=== PATIENT | female | born 1950 | race Caucasian/White ===

== ENCOUNTER 2016-11-26 11:15 | Emergency (ER) | payer OTHER ==
[2016-11-26] MEDS ORDERED: Zofran 4 MG/2 ML VIAL IV ONE (13:09)
[2016-11-26] MEDS ORDERED: MORPHINE SULFATE 4 MG INJ IV ONE (13:09)
--- NOTE | 2016-11-26 13:09 | ERPHSYRPT ---
- History of Present Illness Time Seen by Provider: 11/26/16 13:05 Source: patient, family Exam Limitations: no limitations Patient Subjective Stated Complaint: right hip pain for two months. seeing dr. valle. took pain med at home with minimal relief. Triage Nursing Assessment: to room per w/c. skin w/d, color normal. tenderness right hip. leg warm, normal color. good pedal pulse. Physician History: The patient is a 66-year-old female with her daughter complaining of worsening right hip pain. 2 months ago she developed right hip pain. She saw her primary medical doctor and had a right hip x-ray done which showed arthritis. She took Tylenol and it resolved. Yesterday it began hurting again. There was no injury. It is very difficult for her even to walk. She took Tylenol 3 with some relief. Her past medical history is significant only for asthma. Method of Injury: unknown Occurred: other (2 months) Quality: sharpness Severity of Pain-Max: severe Severity of Pain-Current: severe Lower Extremities Pain: hip: right Modifying Factors: Improves With: pain medication Associated Symptoms: unable to bear weight Allergies/Adverse Reactions: No Known Drug Allergies Allergy (Verified 11/26/16 12:53) Home Medications: Fluticasone/Vilanterol [Breo Ellipta 100-25 Mcg INH] 1 each IH DAILY 11/26/16 [ History] Hydrochlorothiazide 12.5 mg PO DAILY 11/26/16 [History] Montelukast Sodium [Singulair] 10 mg PO DAILY 11/26/16 [History] Hx Tetanus, Diphtheria Vaccination/Date Given: No Hx Influenza Vaccination/Date Given: Yes (2015) Hx Pneumococcal Vaccination/Date Given: Yes - Review of Systems Constitutional: No Fever, No Chills Eyes: No Symptoms Ears, Nose, & Throat: No Symptoms Respiratory: No Cough, No Dyspnea Cardiac: No Chest Pain, No Edema, No Syncope Abdominal/Gastrointestinal: No Abdominal Pain, No Nausea, No Vomiting, No Diarrhea Genitourinary Symptoms: No Dysuria Musculoskeletal: Joint Pain Skin: No Rash Neurological: No Dizziness, No Focal Weakness, No Sensory Changes Psychological: No Symptoms Endocrine: No Symptoms Hematologic/Lymphatic: No Symptoms Immunological/Allergic: No Symptoms All Other Systems: Reviewed and Negative - Past Medical History Pertinent Past Medical History: Yes Cardiac History: Hypertension Respiratory History: Asthma - Past Surgical History Past Surgical History: Yes Neuro Surgical History: No Pertinent History Cardiac: No Pertinent History Respiratory: Lobectomy Gastrointestinal: No Pertinent History Genitourinary: No Pertinent History Musculoskeletal: No Pertinent History Female Surgical History: Tubal Ligation - Social History Smoking Status: Never smoker Exposure to second hand smoke: No Drug Use: none Patient Lives Alone: No - Nursing Vital Signs Nursing Vital Signs: Initial Vital Signs Temperature 97.9 F Temperature Source Oral Pulse Rate 73 Respiratory Rate 16 Blood Pressure [Right Arm] 168/74 Blood Pressure [Left Arm] 138/66 Pain Intensity 4 - Physical Exam General Appearance: moderate distress Eyes, Ears, Nose, Throat Exam: moist mucous membranes Neck Exam: non-tender, supple Cardiovascular/Respiratory Exam: chest non-tender, normal breath sounds, regular rate/rhythm, no respiratory distress Gastrointestinal/Abdominal Exam: non-tender, guarding Back Exam: normal inspection, No vertebral tenderness Hips Exam: right: limited range of motion, soft tissue tenderness, left: non- tender, normal inspection, normal range of motion Legs Exam: bilateral leg: non-tender, normal inspection Knees Exam: bilateral knee: non-tender, normal inspection Ankle Exam: bilateral ankle: non-tender, normal inspection Foot Exam: bilateral foot: non-tender, normal inspection Neuro/Tendon Exam: normal sensation, normal motor functions Mental Status Exam: alert, oriented x 3, cooperative Skin Exam: normal color, warm, dry SpO2 Interpretation: normal SpO2: 97 Oxygen Delivery: Room Air - CT Exams Right Lower Extremity CT Interpretation: Negative, Tele-radiologist Report (per Dr Hilario) Ordered Tests: Active Orders 24 hr Category Date Time Status IV Insertion STAT Care 11/26/16 13:09 Active HIP UNI (2V) INCL PEL IF DONE Stat Exams 11/26/16 13:10 Taken LOWER EXTREMITY WO CONTRAST [CT] Stat Exams 11/26/16 14:07 Taken Medication Summary Discontinued Medications Generic Name Dose Route Start Last Admin Trade Name Freq PRN Reason Stop Dose Admin Morphine Sulfate 4 mg 11/26/16 13:09 11/26/16 13:41 Morphine Sulfate 4 Mg Inj IV 11/26/16 13:10 4 mg STAT ONE Administration Morphine Sulfate Confirm 11/26/16 13:33 Morphine Sulfate 4 Mg Inj Administered 11/26/16 13:34 Dose 4 mg .ROUTE .STK-MED ONE Ondansetron HCl 4 mg 11/26/16 13:09 11/26/16 13:42 Zofran 4 Mg/2 Ml Vial IV 11/26/16 13:10 4 mg STAT ONE Administration Ondansetron HCl Confirm 11/26/16 13:33 Zofran 4 Mg/2 Ml Vial Administered 11/26/16 13:34 Dose 4 mg .ROUTE .STK-MED ONE - Progress Progress: improved Counseled pt/family regarding: rad results - Departure Time of Disposition: 15:20 Departure Disposition: Home Clinical Impression: Hip pain Condition: Stable Critical Care Time: No Additional Instructions: You have right hip pain. This likely is muscular in nature. The CT scan of the right hip was negative. Take Tylenol No. 3 one tablet every 4-6 hours as needed. Apply ice to the area for 10-15 minutes at a time to 3 times a day. If the condition persists, follow-up with your family doctor for possible MRI study of the area. Prescriptions: Codeine Phosphate/APAP #3 [Tylenol #3 Tablet] 1 tab PO Q4-6HPRN PRN #10 tablet PRN Reason: Pain
[2016-11-26] MEDS ORDERED: Zofran 4 MG/2 ML VIAL ONE (13:33)
[2016-11-26] MEDS ORDERED: MORPHINE SULFATE 4 MG INJ ONE (13:33)
[2016-11-26 15:53] VITALS: BP 142/69; PULSE 84; O2SAT 95
--- NOTE | 2016-11-26 21:14 | XRAY ---
Indication: Right hip pain. Multiple contiguous axial images obtained through the right hip. Sagittal and coronal reformatted images obtained. Comparison: None No acute fracture or dislocation. Superior acetabular small well-circumscribed sclerotic lesion favoring bone island. Visualized noncontrasted soft tissues are unremarkable. Impression: Negative CT right hip. Comment: Preliminary interpretation was made by [facility]. No critical discrepancy. CTDI 74.34
--- NOTE | 2016-11-26 21:18 | XRAY ---
Indication: Worsening right hip pain. Comparison: September 19, 2016. AP pelvis and 2 views of the right hip demonstrates stable tiny superior acetabular spurring. Incidental L5-S1 degenerative facet arthropathy. No acute findings.
== END 2016-11-26 15:53 | disposition home or self-care (01) ==
LOC: ED 11:15
DX: M25.551 Pain in right hip (principal); R26.2 Difficulty in walking, not elsewhere classified
CPT/HCPCS: 36000; 73502; 73700; 96374; 96375; 99284; J2270; J2405

== ENCOUNTER 2018-11-19 11:31 | Observation (INO) | payer OTHER ==
[2018-11-19] MEDS ORDERED: TYLENOL 325 MG PO PRN (12:59)
[2018-11-19] MEDS ORDERED: solu-MEDROL 125 MG IV SCH ×2 (13:00→14:00)
--- NOTE | 2018-11-19 13:06 | PCM.HP.ADD ---
Addendum to History & Physical - History & Physical Addendum Addendum to History & Physical: This certifies that the History & Physical in the electronic chart reflects the current health status of the patient. If there are changes in the H&P these changes/exceptions are listed as follows.
[2018-11-19 13:13] LABS: BASOPHIL % 0.3 % (0.0-0.4); Basophil (Absolute #) 0.04 (0-0.4); Eosinophil % 0.6 % (0.00-5.0); Eosinophil (Absolute #) 0.08 (0-0.5); Granulocyte Absolute (ANC) 8.31 (1.4-6.9); Granulocytes % 67.2 % (36.0-66.0); Hematocrit 38.5 % (35-47); Hemoglobin 12.8 gm/dl (12.0-16.0); Lymphocytes % 24.2 % (24.0-44.0); Mean Cell Volume 81.6 fl (78-100); Mean Corpuscular Hemoglobin 27.1 pg (26-32); Mean Corpuscular Hgb Concent. 33.2 g/dl (32-36); Mean Platelet Volume 10.9 fl (6-9.5); Monocyte (Absolute #) 0.96 (0.0-1.3); Monocytes % 7.7 % (0.0-12.0); Platelet Count 234 K/mm3 (150-450); Red Blood Count 4.72 M/mm3 (4.1-5.4); Red Cell Distribution Width 13.7 % (11.5-14.0); White Blood Count 12.4 K/mm3 (4.0-10.5)
[2018-11-19 13:17] LABS: ALBUMIN 4.1 g/dL (3.5-5.0); ALKALINE PHOSPHATASE 64 U/L (38-126); ANION GAP 13.7 MEQ/L (5-15); BLOOD UREA NITROGEN 10 mg/dL (7-17); CHLORIDE 104 mmol/L (98-107); Calcium 9.5 mg/dL (8.4-10.2); Carbon Dioxide 23 mmol/L (22-30); Glucose 96 mg/dL (74-106); Potassium 3.1 mmol/L (3.5-5.1); SGOT/AST 28 U/L (14-36); SGPT/ALT 28 U/L (0-35); SODIUM 138 mmol/L (137-145); Total Protein 7.4 g/dL (6.3-8.2)
[2018-11-19] MEDS ORDERED: PROVENTIL 2.5 MG/3 ML NEB IH PRN (13:32)
[2018-11-19] MEDS: Sodium Chloride 0.9% 1000 ML 1,000 ML IV SCH (13:36)
[2018-11-19] MEDS: ROCEPHIN 1 Gm-D5w 50 ml Bag** 1 G/50 ML IVPB IV SCH ×2 (13:37→14:49)
[2018-11-19] MEDS: ENOXAPARIN SODIUM SQ SCH (13:37)
--- NOTE | 2018-11-19 14:55 | XRAY ---
Exam: Two-view chest from 11/19/2018. Comparison: Two-view chest from 04/12/2016. Indication: 68-year-old female with cough and shortness of breath. Findings: Upright PA and lateral chest films were obtained. The heart size and contour appear unremarkable. The lung cazares are well inflated. A calcified granuloma is seen within the right suprahilar projection representing no change. A couple surgical clips are seen anterior right lateral to the distal trachea representing no change. Some nonspecific lung markings are seen overlying the upper aspect of the heart anteriorly on the lateral radiograph which I believe are unchanged from 04/12/2016, i.e. chronic. I see no new air space infiltrates, vascular congestion, pneumothorax, or pleural fluid. Mild biapical pleural thickening/scarring is seen. There is interposition of the hepatic flexure of the colon with the liver in the right upper quadrant. There appears to be a mild pectus excavatum at the level of the sternum. No acute osseous process is seen. Mild scattered anterior vertebral endplate spurring is seen throughout the visualized thoracolumbar spine. Impression: 1. I see no new air space infiltrates to suggest pneumonia. No other acute cardiopulmonary disease is seen. 2. Other stable findings are seen within the chest, as discussed above.
[2018-11-19] MEDS ORDERED: PROVENTIL 2.5 MG/3 ML NEB IH SCH (15:00)
[2018-11-19] MEDS: DUONEB 0.5-3 MG/3 ml Neb IH SCH ×2 (15:20→19:24)
[2018-11-19] MEDS ORDERED: FLUTICASONE IH SCH (17:00)
[2018-11-19] MEDS ORDERED: VILANTEROL IH SCH (17:00)
[2018-11-19] MEDS ORDERED: Advair Hfa 115/21 Common canister IH SCH (19:00)
[2018-11-19] MEDS: PATIENT OWN MEDICATION PO SCH (19:28)
[2018-11-19] MEDS: solu-MEDROL 125 MG IV SCH (21:10)
[2018-11-19] MEDS: Cymbalta 30 MG Capsule PO SCH ×2 (21:11→21:36)
[2018-11-19] MEDS: TYLENOL 325 MG PO PRN (21:26)
[2018-11-19] MEDS ORDERED: DULOXETINE HCL 30 MG PO SCH (22:00)
[2018-11-19] MEDS ORDERED: Singulair 10 MG PO SCH (22:00)
[2018-11-20] MEDS: DUONEB 0.5-3 MG/3 ml Neb IH SCH ×4 (01:55→19:34)
[2018-11-20] MEDS: Sodium Chloride 0.9% 1000 ML 1,000 ML IV SCH (05:12)
[2018-11-20] MEDS: solu-MEDROL 125 MG IV SCH ×3 (05:12→21:39)
[2018-11-20] MEDS: PATIENT OWN MEDICATION PO SCH (07:29)
[2018-11-20] MEDS: hydroDIURIL 25 MG PO SCH (09:44)
[2018-11-20] MEDS: ROCEPHIN 1 Gm-D5w 50 ml Bag** 1 G/50 ML IVPB IV SCH (09:45)
[2018-11-20] MEDS: ENOXAPARIN SODIUM SQ SCH (09:45)
[2018-11-20] MEDS ORDERED: NON-FORMULARY ITEM (Hydrochlorothiazide [Hydrochlorothiazide] 12.5 MG) PO SCH (10:00)
[2018-11-20] MEDS ORDERED: Cymbalta 30 MG Capsule PO SCH (10:01)
[2018-11-20] MEDS ORDERED: Singulair 10 MG PO SCH (10:01)
[2018-11-20] MEDS: POTASSIUM CHLORIDE 20 mEq IN WATER 100ML 20 MEQ/100 ML BAG IV SCH ×2 (13:04→15:12)
--- NOTE | 2018-11-20 13:21 | PCM.NOTE ---
Date and Time: 11/20/18 1318 Subjective Assessment: doing better today, still short of breath - Review of Systems Constitutional: No Fever, No Chills Eyes: No Symptoms Ears, Nose, & Throat: No Symptoms Respiratory: Cough, Orthopnea, Short Of Breath Cardiac: No Chest Pain, No Edema, No Syncope Abdominal/Gastrointestinal: No Abdominal Pain, No Nausea, No Vomiting, No Diarrhea Genitourinary Symptoms: No Dysuria Musculoskeletal: No Back Pain, No Neck Pain Skin: No Rash Neurological: No Dizziness, No Focal Weakness, No Sensory Changes Psychological: No Symptoms Endocrine: No Symptoms Hematologic/Lymphatic: No Symptoms Immunological/Allergic: No Symptoms Objective Exam General Appearance: no apparent distress, alert Neurologic Exam: alert, oriented x 3, cooperative, normal mood/affect, nml cerebellar function, sensation nml, No motor deficits Skin Exam: normal color, warm, dry Eye Exam: PERRL, EOMI, eyes nml inspection Ears, Nose, Throat Exam: normal ENT inspection, pharynx normal, moist mucous membranes Neck Exam: normal inspection, non-tender, supple, full range of motion Respiratory Exam: diminished breath sounds, No respiratory distress Cardiovascular Exam: regular rate/rhythm, normal heart sounds Gastrointestinal/Abdomen Exam: soft, No tenderness, No mass Extremity Exam: normal inspection, normal range of motion Back Exam: normal inspection, normal range of motion, No CVA tenderness, No vertebral tenderness Pelvic Exam: deferred Rectal Exam: deferred OBJECTIVE DATA Vital Signs: Vital Signs - 24 hr Temp Pulse Resp BP Pulse Ox 11/20/18 11:20 97.5 F 92 H 20 145/63 95 11/20/18 08:00 18 11/20/18 07:15 88 18 94 L 11/20/18 07:08 97.7 F 81 18 148/64 95 11/20/18 04:00 98.4 F 86 18 151/70 98 11/20/18 01:55 94 H 20 90 L 11/19/18 23:33 97.4 F 85 20 131/60 85 L 11/19/18 20:00 98.2 F 98 H 18 152/68 94 L 11/19/18 19:30 97 H 18 100 11/19/18 18:00 18 11/19/18 16:01 98.7 F 80 18 156/72 96 11/19/18 13:43 18 Pain Assessment - Last Documented Pain Intensity 0 Pain Scale Used 0-10 Pain Scale Intake and Output: Intake & Output 11/18/18 11/19/18 11/20/18 11/21/18 11:59 11:59 11:59 11:59 Intake Total 2327 240 Output Total 750 Balance 1577 240 Weight 71.6 kg Lab Results: Lab Results-Last 24 Hours 11/19/18 Range/Units 12:59 Sodium 138 (137-145) mmol/L Potassium 3.1 L (3.5-5.1) mmol/L Chloride 104 (98-107) mmol/L Carbon Dioxide 23 (22-30) mmol/L Anion Gap 13.7 (5-15) MEQ/L BUN 10 (7-17) mg/dL Creatinine 0.80 (0.52-1.04) mg/dL Estimated GFR > 60.0 ML/MIN Glucose 96 (74-106) mg/dL Calcium 9.5 (8.4-10.2) mg/dL Total Bilirubin 0.70 (0.2-1.3) mg/dL AST 28 (14-36) U/L ALT 28 (0-35) U/L Alkaline Phosphatase 64 (38-126) U/L Serum Total Protein 7.4 (6.3-8.2) g/dL Albumin 4.1 (3.5-5.0) g/dL Radiology Exams: Radiology Procedures Category Date Time Status CHEST 2 VIEWS (PA AND LAT) Stat Exams 11/19/18 13:51 Completed Assessment/Plan (1) Acute exacerbation of chronic bronchitis Current Visit: Yes Status: Acute Assessment & Plan: continue IV steroids and abx, bronchodilaters Code(s): J20.9 - ACUTE BRONCHITIS, UNSPECIFIED; J42 - UNSPECIFIED CHRONIC BRONCHITIS (2) Abnormal electrocardiogram [ECG] [EKG] Current Visit: Yes Status: Acute Assessment & Plan: no change from previous one, will continue monitoring (3) Hypokalemia due to loss of potassium Current Visit: Yes Status: Acute Assessment & Plan: K replacements, recheck K after infusion. Code(s): E87.6 - HYPOKALEMIA
[2018-11-20 19:52] LABS: Potassium 3.8 mmol/L (3.5-5.1)
[2018-11-20 20:04] LABS: TROPONIN 0.136 ng/mL (0.000-0.034)
[2018-11-20] MEDS: TYLENOL 325 MG PO PRN (21:39)
[2018-11-21] MEDS: Sodium Chloride 0.9% 1000 ML 1,000 ML IV SCH (03:52)
[2018-11-21] MEDS: solu-MEDROL 125 MG IV SCH (06:41)
[2018-11-21] MEDS ORDERED: DUONEB 0.5-3 MG/3 ml Neb IH PRN (07:00)
[2018-11-21] MEDS: PATIENT OWN MEDICATION PO SCH (07:31)
[2018-11-21] MEDS: ROCEPHIN 1 Gm-D5w 50 ml Bag** 1 G/50 ML IVPB IV SCH (10:19)
[2018-11-21] MEDS: hydroDIURIL 25 MG PO SCH (10:21)
[2018-11-21] MEDS: ENOXAPARIN SODIUM SQ SCH (10:22)
[2018-11-21 12:05] VITALS: BP 150/65; PULSE 81; O2SAT 95
--- NOTE | 2018-11-21 12:53 | PCM.SSS ---
History of Present Illness - Chief Complaint Chief Complaint: cough for last 4 weeks History of Present Illness: is a 68 year old female came to hospital with c/o cough for 4 weeks. Patient denies any chest pain. c/o cough with mild productive sputum. minimal shortness of breath - Review of Systems Constitutional: No Fever, No Chills Eyes: No Symptoms Ears, Nose, & Throat: No Symptoms Respiratory: Cough, Short Of Breath Cardiac: No Chest Pain, No Edema, No Syncope Abdominal/Gastrointestinal: No Abdominal Pain, No Nausea, No Vomiting, No Diarrhea Genitourinary Symptoms: No Dysuria Musculoskeletal: No Back Pain, No Neck Pain Skin: No Rash Neurological: No Dizziness, No Focal Weakness, No Sensory Changes Psychological: No Symptoms Endocrine: No Symptoms Hematologic/Lymphatic: No Symptoms Immunological/Allergic: No Symptoms Medications & Allergies Home Medications: Home Medication List Fluticasone/Vilanterol [Breo Ellipta 100-25 Mcg INH] 100 mcg IH QID 11/26/16 [ History Confirmed 11/19/18] Hydrochlorothiazide 12.5 mg PO DAILY 11/26/16 [History Confirmed 11/19/18] Montelukast Sodium [Singulair] 10 mg PO DAILY 11/26/16 [History Confirmed ] Albuterol 2.5 mg/3 ml Neb [Proventil 2.5 mg/3 ml Neb] 2.5 mg IH Q4-6HPRN PRN 11/19/18 [History Confirmed 11/19/18] Duloxetine HCl 30 mg PO DAILY 11/19/18 [History Confirmed 11/20/18] Acetaminophen 325 mg [Tylenol 325 mg] 650 mg PO Q4H PRN PRN tablet [Rx] Aspirin 81 gm Chew [Baby Aspirin 81 mg Chew] 81 mg PO DAILY #30 tab.chew 11/21/18 [Rx] Carvedilol 3.125 mg [Coreg 3.125 MG] 3.125 mg PO BID #60 tablet 11/21/18 [ Rx] Lisinopril [Zestril] 2.5 mg PO DAILY #30 tablet 11/21/18 [Rx] Allergies/Adverse Reactions: Allergies Allergy/AdvReac Type Severity Reaction Status Date / Time No Known Drug Allergies Allergy Verified 11/26/16 12:53 - Past Medical History Past Medical History: Yes Neurological History: No Pertinent History ENT History: No Pertinent History Cardiac History: Hypertension Respiratory History: Asthma, Pneumonia Endocrine Medical History: No Pertinent History Musculoskelatal History: Arthritis, Fibromyalgia GI Medical History: No Pertinent History History: No Pertinent History Pyscho-Social History: No Pertinent History Reproductive Disorders: No Pertinent History - Female History Hx Last Menstrual Period: . Are you now?: No - Past Surgical History Past Surgical History: Yes Neuro Surgical History: No Pertinent History Cardiac History: No Pertinent History Respiratory Surgery: Lobectomy GI Surgical History: No Pertinent History Genitourinary Surgical Hx: No Pertinent History Musculskeletal Surgical Hx: No Pertinent History Female Surgical History: Tubal Ligation - Social History Smoking Status: Never smoker Exposure to second hand smoke: Yes Alcohol: None Drug Use: none - Physical Exam Vital Signs: Vital Signs - 24 hr Temp Pulse Resp BP Pulse Ox 11/21/18 12:04 98.2 F 81 16 150/65 95 11/21/18 12:00 16 11/21/18 07:47 97.8 F 73 18 169/71 96 11/21/18 07:34 98 H 18 99 11/21/18 04:00 97.8 F 67 17 184/77 95 11/21/18 00:00 97.7 F 68 17 131/61 94 L 11/20/18 20:00 97.9 F 95 H 16 148/68 95 11/20/18 19:37 95 11/20/18 19:36 95 H 16 95 11/20/18 16:01 97.6 F 91 H 20 166/72 95 11/20/18 13:36 96 H 18 95 General Appearance: no apparent distress, alert Neurologic Exam: alert, oriented x 3, cooperative, normal mood/affect, nml cerebellar function, nml station & gait, sensation nml, No motor deficits Eye Exam: PERRL/EOMI, eyes nml inspection Ears, Nose, Throat Exam: normal ENT inspection, TMs normal, pharynx normal, moist mucous membranes Neck Exam: normal inspection, non-tender, supple, full range of motion Respiratory Exam: lungs clear, diminished breath sounds, rhonchi, wheezing, No respiratory distress Cardiovascular Exam: regular rate/rhythm, normal heart sounds, normal peripheral pulses Gastrointestinal/Abdomen Exam: soft, normal bowel sounds, No tenderness, No mass Back Exam: normal inspection, normal range of motion, No CVA tenderness, No vertebral tenderness Extremity Exam: normal inspection, normal range of motion, pelvis stable Skin Exam: normal color, warm, dry, No rash Lymphatic Exam: No adenopathy Results - Labs Lab/Micro Results: Lab Results-Last 24 Hours 11/20/18 11/21/18 Range/Units 19:15 07:49 Potassium 3.8 D (3.5-5.1) mmol/L Troponin I 0.136 H* 0.115 H* (0.000-0.034) ng/mL - Radiology Impressions Radiology Exams & Impressions: Radiology Procedures Category Date Time Status CHEST 2 VIEWS (PA AND LAT) Stat Exams 11/19/18 13:51 Completed ECHO W/2D AND DOPPLER [US] Routine Exams 11/21/18 10:25 Taken - Other Procedures and Tests Respiratory Therapy 11/21/18 07:00 Respiratory MDI UD Assessment/Plan (1) Acute exacerbation of chronic bronchitis Current Visit: Yes Status: Acute Assessment & Plan: Last Vital Signs Temp 98.2 F 11/21/18 12:04 Pulse 81 11/21/18 12:04 Resp 16 11/21/18 12:04 BP 150/65 11/21/18 12:04 Pulse Ox 95 11/21/18 12:04 Allergies No Known Drug Allergies Allergy (Verified 11/26/16 12:53) Active Medications Acetaminophen (Tylenol 325 Mg) 650 mg PO Q4H PRN PRN PRN Reason: PAIN, FEVER, HEADACHE Stop: 12/19/18 12:58 Last Admin: 11/20/18 21:39 Dose: 650 mg Albuterol Sulfate (Proventil 2.5 Mg/3 Ml Neb) 2.5 mg IH Q2H PRN PRN PRN Reason: SHORTNESS OF BREATH/WHEEZING Stop: 12/19/18 13:31 Albuterol/Ipratropium (Duoneb 0.5-3 Mg/3 Ml Neb) 3 ml IH Q4HPRN PRN PRN Reason: SHORTNESS OF BREATH/WHEEZING Stop: 12/21/18 06:59 Duloxetine HCl (Cymbalta 30 Mg Capsule) [facility] Stop: 12/20/18 09:59 Last Admin: 11/21/18 10:23 Dose: 30 mg Enoxaparin Sodium (Enoxaparin Sodium) 40 mg SQ DAILY [facility] Stop: 12/20/18 09:59 Last Admin: 11/21/18 10:22 Dose: 40 mg Hydrochlorothiazide (Hydrodiuril 25 Mg) 12.5 mg PO DAILY MATTI Stop: 12/20/18 09:59 Last Admin: 11/21/18 10:21 Dose: 12.5 mg Ceftriaxone Sodium/Dextrose (Rocephin 1 Gm-D5w 50 Ml Bag) 1 g in 50 mls @ 100 mls/hr IV Q24H10 [facility] Stop: 12/19/18 13:59 Last Admin: 11/21/18 10:19 Dose: 100 mls/hr Sodium Chloride (Sodium Chloride 0.9% 1000 Ml) 1,000 mls @ 50 mls/hr IV .Q20H [facility] Stop: 12/19/18 12:59 Last Admin: 11/21/18 03:52 Dose: 50 mls/hr Methylprednisolone Sodium Succinate (Solu-Medrol 125 Mg) 60 mg IV Q8HT [facility] Stop: 12/19/18 21:59 Last Admin: 11/21/18 06:41 Dose: 60 mg Montelukast Sodium (Singulair 10 Mg) 10 mg PO DAILY [facility] Stop: 12/20/18 09:59 Last Admin: 11/21/18 10:22 Dose: 10 mg Patient Own Medication (Patient Own Medication) 1 each PO DAILY [facility] Stop: 12/20/18 09:59 Last Admin: 11/20/18 07:29 Dose: 1 each Intake & Output 11/21/18 11/22/18 11:59 11:59 Intake Total 1660 600 Output Total 2100 900 Balance -440 -300 Orders 11/21/18 07:00 Albuterol/Ipratropium 3ml Neb* [DUONEB 0.5-3 MG/3 ml Neb] 3 ml IH Q4HPRN PRN Respiratory MDI UD 11/21/18 08:47 Consult Cardiology ROUTINE 11/21/18 10:25 ECHO W/2D AND DOPPLER [US] Routine Lab Tests 11/20/18 11/21/18 19:15 07:49 Potassium 3.8 D Troponin I 0.136 H* 0.115 H* Code(s): J20.9 - ACUTE BRONCHITIS, UNSPECIFIED; J42 - UNSPECIFIED CHRONIC BRONCHITIS (2) Abnormal electrocardiogram [ECG] [EKG] Current Visit: Yes Status: Acute (3) Hypokalemia due to loss of potassium Current Visit: Yes Status: Resolved Code(s): E87.6 - HYPOKALEMIA (4) Elevated troponin Current Visit: Yes Status: Acute Assessment & Plan: downward trend Code(s): R74.8 - ABNORMAL LEVELS OF OTHER SERUM ENZYMES Hospital Summary - Hospital Course Hospital Course: Chief Complaint Diagnosis Chronic Bronchitis Allergies Allergy/AdvReac Type Severity Reaction Status Date / Time No Known Drug Allergies Allergy Verified 11/26/16 12:53 Vital Signs (Last 24 hours) Temp Pulse Resp BP Pulse Ox 11/21/18 12:04 98.2 F 81 16 150/65 95 11/21/18 12:00 16 11/21/18 07:47 97.8 F 73 18 169/71 96 11/21/18 07:34 98 H 18 99 11/21/18 04:00 97.8 F 67 17 184/77 95 11/21/18 00:00 97.7 F 68 17 131/61 94 L 11/20/18 20:00 97.9 F 95 H 16 148/68 95 11/20/18 19:37 95 11/20/18 19:36 95 H 16 95 11/20/18 16:01 97.6 F 91 H 20 166/72 95 11/20/18 13:36 96 H 18 95 Home Medications Medication Instructions Recorded Confirmed Last Taken Type Albuterol 2.5 mg/3 ml Neb 2.5 mg IH Q4-6HPRN PRN 11/19/18 11/19/18 Unknown History [Proventil 2.5 mg/3 ml Neb] Albuterol Sulfate [Proair Hfa] 90 mcg IH QID 11/19/18 11/19/18 1 Day Ago History ~11/18/18 Duloxetine HCl 30 mg PO DAILY 11/19/18 11/20/18 11/18/18 20:00 History Current Medications Generic Name Dose Route Start Last Admin Trade Name Freq PRN Reason Stop Dose Admin Acetaminophen 650 mg 11/19/18 13:31 11/20/18 21:39 Tylenol 325 Mg PO 12/19/18 12:58 650 mg Q4H PRN PRN Administration PAIN, FEVER, HEADACHE Albuterol Sulfate 2.5 mg 11/19/18 13:32 Proventil 2.5 Mg/3 Ml Neb IH 12/19/18 13:31 Q2H PRN PRN SHORTNESS OF BREATH/WHEEZING Albuterol/Ipratropium 3 ml 11/21/18 07:00 Duoneb 0.5-3 Mg/3 Ml Neb IH 12/21/18 06:59 Q4HPRN PRN SHORTNESS OF BREATH/WHEEZING Duloxetine HCl 30 mg 11/20/18 10:01 11/21/18 10:23 Cymbalta 30 Mg Capsule PO 12/20/18 09:59 30 mg QAM MATTI Administration Enoxaparin Sodium 40 mg 11/20/18 10:00 11/21/18 10:22 Enoxaparin Sodium SQ 12/20/18 09:59 40 mg DAILY MATTI Administration Hydrochlorothiazide 12.5 mg 11/20/18 10:00 11/21/18 10:21 Hydrodiuril 25 Mg PO 12/20/18 09:59 12.5 mg DAILY MATTI Administration Ceftriaxone Sodium/Dextrose 1 g in 50 mls @ 100 mls/hr 11/19/18 14:00 10:19 Rocephin 1 Gm-D5w 50 Ml Bag IV 12/19/18 13:59 100 mls/hr Q24H10 MATTI Administration Sodium Chloride 1,000 mls @ 50 mls/hr 11/19/18 13:00 11/21/18 03:52 Sodium Chloride 0.9% 1000 Ml IV 12/19/18 12:59 50 mls/hr .Q20H MATTI Administration Methylprednisolone Sodium Succinate 60 mg 11/19/18 22:00 11/21/18 06:41 Solu-Medrol 125 Mg IV 12/19/18 21:59 60 mg Q8HT MATTI Administration Montelukast Sodium 10 mg 11/20/18 10:01 11/21/18 10:22 Singulair 10 Mg PO 12/20/18 09:59 10 mg DAILY MATTI Administration Patient Own Medication 1 each 11/20/18 10:00 11/20/18 07:29 Patient Own Medication PO 12/20/18 09:59 1 each DAILY MATTI Administration Discontinued Medications Generic Name Dose Route Start Last Admin Trade Name Bettina PRN Reason Stop Dose Admin Acetaminophen 325 mg 11/19/18 12:59 11/19/18 13:39 Tylenol 325 Mg PO 12/19/18 12:58 650 mg Q4H PRN PRN Administration PAIN, FEVER, HEADACHE Albuterol Sulfate 2.5 mg 11/19/18 15:00 11/19/18 12:50 Proventil 2.5 Mg/3 Ml Neb IH 12/19/18 14:59 2.5 mg Q4HRT MATTI Administration Albuterol/Ipratropium 3 ml 11/19/18 13:00 11/20/18 19:34 Duoneb 0.5-3 Mg/3 Ml Neb IH 12/19/18 12:59 3 ml Q6HRT MATTI Administration Duloxetine HCl 30 mg 11/19/18 22:00 11/19/18 21:36 Cymbalta 30 Mg Capsule PO 12/19/18 21:59 Not Given HS MATTI Potassium Chloride 20 meq in 100 mls @ 50 mls/hr 11/20/18 12:15 11/20/18 15: 12 Potassium Chloride 20 Meq In Water 100ml IV 11/20/18 16:14 50 mls/hr Q2H MATTI Administration Methylprednisolone Sodium Succinate 60 mg 11/19/18 13:00 11/19/18 13:37 Solu-Medrol 125 Mg IV 12/19/18 12:59 60 mg Q8H MATTI Administration Methylprednisolone Sodium Succinate 60 mg 11/19/18 14:00 Solu-Medrol 125 Mg IV 12/19/18 12:59 Q8HT MATTI Montelukast Sodium 10 mg 11/19/18 22:00 11/19/18 21:35 Singulair 10 Mg PO 12/19/18 21:59 Not Given HS MATTI Fluticasone/Salmeterol 2 puff 11/19/18 19:00 11/20/18 10:05 Advair Hfa 115/21 Common Canister* IH 12/19/18 18:59 Not Given BIDRT MATTI Intake & Output (Last 24 hours) 11/19/18 11/20/18 11/21/18 11/22/18 11:59 11:59 11:59 11:59 Intake Total 2327 1660 600 Output Total 750 2100 900 Balance 1577 -440 -300 Weight 71.6 kg Laboratory Results (Last 24 hours) 11/21/18 11/20/18 07:49 19:15 Potassium 3.8 D Troponin I 0.115 H* 0.136 H* Orders (Last 24 hours) Category Date Time Status Consult Cardiology ROUTINE Cons 11/21/18 08:47 Active ECHO W/2D AND DOPPLER [US] Routine Exams 11/21/18 10:25 Taken Potassium Urgent Lab 11/20/18 19:15 Completed TROPONIN Urgent Lab 11/20/18 19:15 Completed TROPONIN Urgent Lab 11/21/18 07:49 Completed Albuterol/Ipratropium 3ml Neb* [DUONEB 0.5-3 MG/3 ml Med 11/21/18 07:00 Active Neb] 3 ml IH Q4HPRN PRN Potassium Chloride 20Meq/100Ml [POTASSIUM CHLORIDE 20 Med 11/20/18 12:15 Discontinued mEq IN WATER 100ML] 20 meq in 100 ml IV Q2H EKG STAT RT 11/20/18 20:25 Completed Respiratory MDI UD RT 11/21/18 07:00 Active Patient Care Notes (Last 24 hours) 11/21/18 10:46 Nursing Note by Kym Tripathi Received order for Cardiology consult. Cardiology consult completed per echo aguila. Dr Spain stated he would like the patient to be seen as an outpatient if Dr Norman was unable to see the patient here at this time. PT with elevated Trop I. Pt. with no active chest pain or discomfort at this time. Echo aguila placed a page to Dr Norman to update on new orders. Initialized on 11/21/18 10:46 - END OF NOTE 11/21/18 08:37 Nursing Note by Rosy Laboy I called and faxed everything to office. Office stated they will call patient with a sooner appt then 03/22/19 at 2pm. She had a pulmonary function test scheduled for that date 03/22/19 @ 3pm Initialized on 11/21/18 08:37 - END OF NOTE 11/20/18 20:30 Nursing Note by Behzad Sanders Notified Dr Spain of Troponin level 0.136. Pt is asymptomatic. BP 148/68, HR 95, R19, O2 sat 94% on RA, Temp 97.9. He ordered AM troponin, EKG now, and decrease nebulizer treatments to PRN only. Notified RT of these orders. Initialized on 11/20/18 20:30 - END OF NOTE 11/20/18 15:15 (created 11/20/18 16:11) Nursing Note by Kym Tripathi 2nd Potassium rider infusing at this time. PT tolerating well. Telemetry in place at this time Initialized on 11/20/18 16:11 - END OF NOTE 11/20/18 13:17 Nursing Note by Kym Tripathi IV potassium started and new tubing added to line a to infuse. Pt tolerating well Addendum entered by Kym Tripathi, RN 11/20/18 13:17: telemetry added to pt per protocol. Initialized on 11/20/18 13:17 - END OF NOTE - Vitals & Intake/Output Vital Signs: Vital Signs Temperature 98.2 F 11/21/18 12:04 Pulse Rate 81 11/21/18 12:04 Respiratory Rate 16 11/21/18 12:04 Blood Pressure 150/65 11/21/18 12:04 O2 Sat by Pulse Oximetry 95 11/21/18 12:04 Intake & Output: Intake & Output 11/19/18 11/20/18 11/21/18 11/22/18 11:59 11:59 11:59 11:59 Intake Total 2327 1660 600 Output Total 750 2100 900 Balance 1577 -440 -300 Weight 71.6 kg - Lab Result Diagrams: 11/19/18 12:59 11/20/18 19:15 Lab Results-Last 24 Hrs: Lab Results-Last 24 Hours 11/20/18 11/21/18 Range/Units 19:15 07:49 Potassium 3.8 D (3.5-5.1) mmol/L Troponin I 0.136 H* 0.115 H* (0.000-0.034) ng/mL - Radiology Exams Ordered Rad Exams-Entire Visit: Radiology Procedures Category Date Time Status CHEST 2 VIEWS (PA AND LAT) Stat Exams 11/19/18 13:51 Completed ECHO W/2D AND DOPPLER [US] Routine Exams 11/21/18 10:25 Taken - Procedures and Test Procedures and Tests throughout Hospitalization: Therapy Orders & Screens 11/19/18 12:42 Respiratory Therapy Assessment DAILY Comment: 11/19/18 12:43 Peak Expiratory Flow Rate ONCE Comment: Reason For Exam: 11/19/18 12:59 EKG STAT Comment: Oxygen Nasal Cannula 2 lpm Comment: Respiratory Therapy Consult ROUTINE Comment: Reason For Exam: 11/20/18 20:25 EKG STAT Comment: Diagnosis: Chronic Bronchitis 11/21/18 07:00 Respiratory MDI UD Comment: [facility]PT'S OWN Diagnosis: Chronic Bronchitis - Discharge Discharge Date: 11/21/18 Disposition: Home, Self-Care Condition: Stable Prescriptions: New Aspirin 81 gm Chew [Baby Aspirin 81 mg Chew] 81 mg PO DAILY #30 tab.chew Carvedilol 3.125 mg [Coreg 3.125 MG] 3.125 mg PO BID #60 tablet Acetaminophen 325 mg [Tylenol 325 mg] 650 mg PO Q4H PRN PRN tablet PRN Reason: Pain, Fever, Headache Lisinopril [Zestril] 2.5 mg PO DAILY #30 tablet Continue Montelukast Sodium [Singulair] 10 mg PO DAILY Hydrochlorothiazide 12.5 mg PO DAILY Fluticasone/Vilanterol [Breo Ellipta 100-25 Mcg INH] 100 mcg IH QID Albuterol 2.5 mg/3 ml Neb [Proventil 2.5 mg/3 ml Neb] 2.5 mg IH Q4- 6HPRN PRN PRN Reason: COPD Duloxetine HCl 30 mg PO DAILY Discontinued Albuterol Sulfate [Proair Hfa] 90 mcg IH QID Follow up with: DAGO GILLIAM MD [NON-STAFF PHY W/O PRIVILEGES] - 03/22/19 3:00 pm (pulm function test is scheduled at 2pm 03/22/19 but they are going to notify patient at home of a sooner date) HECTOR SPAIN MD [Primary Care Provider] - 1 Week
== END 2018-11-21 13:30 | disposition home or self-care (01) ==
LOC: MED SURG 11:51
PROVIDERS: ADMIT General Practice; ATTEND General Practice
DX: J20.9 Acute bronchitis, unspecified (principal); J44.0 Chronic obstructive pulmonary disease with (acute) lower respiratory infection; R94.31 Abnormal electrocardiogram [ECG] [EKG]; I10 Essential (primary) hypertension; R79.89 Other specified abnormal findings of blood chemistry; Z79.899 Other long term (current) drug therapy
CPT/HCPCS: 36415; 71046; 80053; 84132; 84484; 85025; 93005; 93268; 93306; 94150; 94640; 94760; G0378; J0696; J1650; J2930; J3480; J7609; A9270-GY

== ENCOUNTER 2019-01-28 11:13 | Day surgery (SDC) | payer OTHER ==
--- NOTE | 2019-01-28 08:04 | HP ---
DATE OF SURGERY: 01/28/2019 HISTORY OF PRESENT ILLNESS: The patient is a 68 year-old CT scan showed cholelithiasis, had some right upper quadrant pain. She denies any nausea or vomiting now. PAST MEDICAL HISTORY: She has history of osteoporosis, hypertension and some lung disease. PAST SURGICAL HISTORY: Tubal in the past. Lung nodule resection in the past. MEDICATIONS: Aspirin, acetaminophen, hydrochlorothiazide, Breo Ellipta, montelukast, Cymbalta, carvedilol, Spiriva, Evista. ALLERGIES: NKDA. FAMILY HISTORY: Negative in regards to this problem. SOCIAL HISTORY: No smoking or alcohol abuse. REVIEW OF SYSTEMS: Fourteen systems reviewed per admission assessment. No chest pain or palpitations other systems negative or noncontributory as above and per preadmission questionnaire. PHYSICAL EXAMINATION: GENERAL: No acute distress. HEENT: Sclerae nonicteric. NECK: No JVD. CHEST: Equal excursion, nonlabored breathing. CVS: Regular rate and rhythm. ABDOMEN: Soft. History of some mild tenderness right upper quadrant. No peritoneal signs. EXTREMITIES: No significant edema. NEURO: Alert, oriented, moving extremities symmetrically. No gross motor deficits noted. IMPRESSION: Symptomatic cholelithiasis, probable chronic cholecystitis. I feel the patient will benefit from cholecystectomy. 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 She may need further work up and/or testing, endoscopy, other studies or procedures. She understands and agrees to the planned procedure, will proceed with laparoscopic cholecystectomy with possible open. She had been shown the gallbladder pamphlet, explained all of the above risks but not limited to. Will proceed with laparoscopic cholecystectomy possible open as an outpatient.
[~2019-01-28 11:13] MED LIST: Lactated Ringers 1,000 ML IV ONE; Lactated Ringers 1,000 ML IV SCH; MEFOXIN 2 GM PREMIX** 2 GM/50 ML ML IV SCH; Sensorcaine 0.25% 10 ML ONE
[2019-01-28] MEDS ORDERED: DIPRIVAN 200 MG/20 ML IV ONE (11:46)
[2019-01-28] MEDS ORDERED: Zemuron 100 MG/10 ML ONE (11:46)
[2019-01-28] MEDS ORDERED: Versed 2 MG/2 ML Injection ONE (11:47)
[2019-01-28] MEDS ORDERED: SUBLIMAZE 250 MCG/5 ML ONE (11:47)
[2019-01-28] MEDS ORDERED: BREVIBLOC 100 MG/10 ML IV ONE (12:27)
[2019-01-28] MEDS ORDERED: SUBLIMAZE 100 MCG/2 ML ONE ×2 (12:34→13:50)
[2019-01-28] MEDS ORDERED: MORPHINE SULFATE 10 MG/ML ONE (12:35)
[2019-01-28] MEDS ORDERED: Thrombin-JMI 5000 UNITS TP ONE (12:51)
[2019-01-28] MEDS ORDERED: DILAUDID 2 MG INJECTION ONE (13:50)
--- NOTE | 2019-01-28 14:14 | OP ---
SURGERY DATE/TIME: 01/28/2019 1207 PREOPERATIVE DIAGNOSIS: Symptomatic cholelithiasis, chronic cholecystitis. POSTOPERATIVE DIAGNOSIS: Symptomatic cholelithiasis, chronic cholecystitis. PROCEDURE: Laparoscopic cholecystectomy. SURGEON: Dr. Tyrel Chaudhry. COLORED LEATHER SETTER: Dawson Fitzgerald M.D. - Medical Student III. ANESTHESIA: General. ESTIMATED BLOOD LOSS: Less than 50 to 75 cc. INDICATIONS: As noted above. Risks and benefits explained in detail but not limited to and consent obtained. DESCRIPTION OF PROCEDURE AND FINDINGS: The patient was taken to the OR. General anesthesia induced. Abdomen prepped and draped in the usual sterile fashion. After official time out and no disagreement with planned procedure, a transverse incision made at the supraumbilical area. Fascia grasped and pulled upward. Veress needle inserted and tested with saline. Pneumoperitoneum accomplished insufflating opening pressure of 0-15. An 11 mm bladeless port and camera inserted without difficulty followed by two - 5 mm right upper quadrant ports and 5 mm epigastric port. The gallbladder had some mild chronic inflammatory reaction. It was elevated upward. Dissection carried posterior, lateral to anterior fashion. It had quite a bit of chronic inflammatory reaction but slowly and carefully the main cystic artery and cystic duct were isolated until the critical view obtained both anteriorly and posteriorly. The cystic artery clipped right on the gallbladder wall. Cystic duct divided in usual fashion. The gallbladder was slowly and carefully dissected free. There was some friable ooze from the anterior edge of the liver. The gallbladder was quite vascular requiring clipping additional side branches off the cystic artery going directly into the gallbladder. There were clipped directly on the gallbladder wall. Even with this the very anterior edge of the liver wanted to have some ooze from the capsule area. There was no specific vessel to clip or cauterize. Pin point cautery right on the anterior edge of liver was accomplished. Small piece of Surgicel was left in place and this was later switched out to thrombin-soaked piece of Surgicel. A 4 x 4 was temporarily placed in the abdomen placed against this area. It appeared to have good hemostasis at this point. Because of the friability of the liver it was elected to go ahead and leave a temporary CARMELINA drain to reduce risk of collection formation, placed in subhepatic space out through lateral port incision. Copious amount of irrigation irrigating until clear. The irrigation appeared to be clear. There did not appear to be any evidence of any ongoing bleeding at this point. Additional dry piece of Surgicel was left over top of the thrombin soaked one. Again, there is no visible vessel to cauterize. Small anterior edge of the liver parenchyma is almost antiplatelet type of fat. Appeared to have adequate hemostasis at this point. The CARMELINA drain in subhepatic space out lateral port incision secured with PDS suture and placed to bulb suction. Copious amount of irrigation irrigating clear. The 10 fascial defect closed with puncture closure device with #1 Vicryl. Pneumoperitoneum decompressed. Skin incision closed with 4-0 Vicryl. CAREMLINA drain secured with PDS suture and placed to bulb suction. Steri-Strips and sterile dressing applied. The patient tolerated the procedure well. There were no immediate complications. Chronic inflammation, quite vascular gallbladder and also with quite sensitive anterior edge of the liver bed. There were no immediate complications. Patient will be transferred to recovery in satisfactory condition. She is to avoid any aspirin, NSAID, antiplatelet medication or fish oil type medications over the next week or so. She will return to the office next week for CARMELINA drain removal. If by Monday it is not draining anything at all she could come to office sooner for drain removal otherwise will be seen in the office next week.
[2019-01-28 16:01] VITALS: BP 154/73
[2019-01-28] MEDS ORDERED: Zofran 4 MG/2 ML VIAL IV PRN (17:15)
[2019-01-28 17:47] VITALS: PULSE 90
[2019-01-28 17:48] VITALS: O2SAT 99
== END 2019-01-28 17:35 | disposition home or self-care (01) ==
LOC: SDC 11:13
PROVIDERS: ATTEND Surgery
DX: K80.10 Calculus of gallbladder with chronic cholecystitis without obstruction (principal); I10 Essential (primary) hypertension; J44.9 Chronic obstructive pulmonary disease, unspecified; Z79.899 Other long term (current) drug therapy
CPT/HCPCS: 94002; 94250; J0694; J1170; J2250; J2270; J2704; J3010

== ENCOUNTER 2020-03-11 14:45 | Observation (INO) | payer MEDICARE, OTHER ==
[2020-03-11] MEDS ORDERED: PROVENTIL 2.5 MG/3 ML NEB IH ONE (14:55)
[2020-03-11] MEDS ORDERED: Sodium Chloride 0.9% 1000 ML 1,000 ML ONE (14:58)
[2020-03-11] MEDS ORDERED: Sodium Chloride 0.9% 1000 ML 1,000 ML IV SCH (15:00)
[2020-03-11] MEDS ORDERED: PROVENTIL Solution 2.5 MG/0.5 ML IH ONE (15:14)
[2020-03-11 15:28] LABS: Absolute Neutrophil Ct (ANC) 8.48 (1.4-6.9); BASOPHIL % 0.2 % (0.0-0.4); Basophil (Absolute #) 0.02 (0-0.4); Eosinophil % 3.9 % (0.00-5.0); Eosinophil (Absolute #) 0.51 (0-0.5); Hematocrit 38.3 % (35-47); Hemoglobin 12.5 gm/dl (12.0-16.0); Lymphocyte (Absolute #) 3.06 (1.0-4.6); Lymphocytes % 23.5 % (24.0-44.0); Mean Corpuscular Hemoglobin 26.8 pg (26-32); Mean Corpuscular Hgb Concent. 32.6 g/dl (32-36); Mean Platelet Volume 10.3 fl (7.5-11.0); Monocyte (Absolute #) 0.94 (0.0-1.3); Monocytes % 7.2 % (0.0-12.0); Neutrophil % 65.2 % (36.0-66.0); Platelet Count 276 K/mm3 (150-450); Red Blood Count 4.67 M/mm3 (4.1-5.4)
[2020-03-11 15:48] LABS: ALBUMIN 4.4 g/dL (3.5-5.0); ALKALINE PHOSPHATASE 71 U/L (38-126); ANION GAP 12.4 MEQ/L (5-15); BLOOD UREA NITROGEN 15 mg/dL (7-17); CHLORIDE 104 mmol/L (98-107); Calcium 9.6 mg/dL (8.4-10.2); Carbon Dioxide 23 mmol/L (22-30); Creatinine 1 0.91 mg/dL (0.52-1.04); EST GLOMERULAR FILTRATION RATE > 60.0 ML/MIN; Glucose 100 mg/dL (74-106); MAGNESIUM 1.9 mg/dL (1.6-2.3); NT PRO BNP 158 pg/mL (0-900); Potassium 3.8 mmol/L (3.5-5.1); SGOT/AST 37 U/L (14-36); SGPT/ALT 30 U/L (0-35); SODIUM 136 mmol/L (137-145); Total Protein 7.8 g/dL (6.3-8.2)
[2020-03-11 15:57] LABS: INR 0.96 (0.8-3.0); PROTIME 10.9 SECONDS (9.95-12.35)
[2020-03-11 16:03] LABS: INFLUENZA A NEGATIVE (NEGATIVE); INFLUENZA B NEGATIVE (NEGATIVE); RESPIRATORY SYNCTIAL VIRUS NEGATIVE (Negative)
[2020-03-11 16:14] LABS: Appearance SLIGHTLY CLOUDY (CLEAR); Bacteria RARE /HPF (NEGATIVE); Bilirubin NEGATIVE (NEGATIVE); Blood NEGATIVE Ery/ul (0-5); Epithelial Cells RARE /HPF (FEW); Glucose NEGATIVE (NEGATIVE); Ketones SMALL (NEGATIVE); Leukocyte Esterase MODERATE (NEGATIVE); Mucus SLIGHT /HPF (NEGATIVE); Nitrite NEGATIVE (NEGATIVE); Protein,Urine Dip NEGATIVE (Negative); RBC 0-2 /HPF (0-2); Specific Gravity 1.017 (1.005-1.025); Urobilinogen NEGATIVE mg/dL (0-1)
--- NOTE | 2020-03-11 16:23 | XRAY ---
Indication: Cough and short of breath. Comparison: November 19, 2018. Portable chest demonstrates new hazy right infrahilar infiltrate versus atelectasis. Stable right upper lobe calcified granulomas and right paratracheal surgical clips. Remaining heart and lungs unremarkable. Bony thorax intact.
--- NOTE | 2020-03-11 17:12 | ERPHSYRPT ---
- History of Present Illness Time Seen by Provider: 03/11/20 15:05 Patient Subjective Stated Complaint: " I have had a cough for a long time but it's got worse since yesterday. I have had shortness of breath and chest pain across by breast that come and go and feel like a pressure". Triage Nursing Assessment: Pt presents to ER via wheelchair complaining of shortness of breath since last night. Pt has hx of asthma and was recently admitted to hospital this past October for respiratory issues. Pt is alert and oriented x 3. Pt took at home breathing treatments today [employer] and stated "was wheezing" but currently lungs are clear and equal throughout. Noted frequent cry cough. Complains of diffused chest pain across breast since last night, rates pain 7/10. Pt skin is pink, warm, and dry. Abdomen soft and nontender. Does state had three episodes of diarrhea this morning. Denies nausea or vomiting. Denies fever, body aches, chills, weakness, or fatigue. Does state has had headache but believes it is from coughing. Physician History: Is a 69-year-old female who presents with a complaint of a chronic process which is gotten markedly worse in the last 24 hours she has a history of frequent bronchitis and episodes of pneumonia. She complains of chest pain and shortness of breath she is on several respiratory medicine she denies any fever chills or sweats the chest pain is across the breast area she believes it secondary to her severe coughing. Is followed by Dr. Almanza and by Dr. Mims. Timing/Duration: yesterday Activities at Onset: none Severity of Dyspnea-Max: moderate Severity of Dyspnea-Current: moderate Possible Cause: frequent episodes Modifying Factors: Improves With: albuterol inhaler, albuterol nebulizer, coughing Associated Symptoms: cough, chest pain/discomfort Allergies/Adverse Reactions: No Known Drug Allergies Allergy (Verified 03/11/20 15:02) Home Medications: Hydrochlorothiazide 12.5 mg PO DAILY 11/26/16 [History] Montelukast Sodium [Singulair] 10 mg PO DAILY 11/26/16 [History] Duloxetine HCl 90 mg PO DAILY 11/19/18 [History] Raloxifene HCl [Evista] 60 mg PO DAILY 01/16/19 [History] Arformoterol Tartrate [Brovana] 15 mcg NEB BID 03/11/20 [History] Budesonide 0.5 mg NEB BID 03/11/20 [History] Revefenacin [Yupelri] 175 mcg NEB DAILY 03/11/20 [History] Hx Tetanus, Diphtheria Vaccination/Date Given: Yes Hx Influenza Vaccination/Date Given: Yes Hx Pneumococcal Vaccination/Date Given: Yes Immunizations Up to Date: Yes Travel Risk - International Travel Have you traveled outside of the country in past 3 weeks: No - Coronavirus Screening Are you exhibiting any of the following symptoms?: No Close contact with a COVID-19 positive Pt in past 14-21 Days: No - Review of Systems Constitutional: No Fever, No Chills Eyes: No Symptoms Ears, Nose, & Throat: No Symptoms Respiratory: Cough, Dyspnea Cardiac: Chest Pain, No Edema, No Syncope Abdominal/Gastrointestinal: No Abdominal Pain, No Nausea, No Vomiting, No Diarrhea Genitourinary Symptoms: No Dysuria Musculoskeletal: No Back Pain, No Neck Pain Skin: No Rash Neurological: No Dizziness, No Focal Weakness, No Sensory Changes Psychological: No Symptoms Endocrine: No Symptoms All Other Systems: Reviewed and Negative - Past Medical History Pertinent Past Medical History: Yes Neurological History: No Pertinent History ENT History: No Pertinent History Cardiac History: Hypertension, Myocardial Infarction ([place]) Respiratory History: Asthma, Pneumonia Endocrine Medical History: No Pertinent History Musculoskeletal History: Arthritis, Fibromyalgia, Osteoporosis GI Medical History: No Pertinent History History: No Pertinent History Psycho-Social History: No Pertinent History Female Reproductive Disorders: No Pertinent History - Past Surgical History Past Surgical History: Yes Neuro Surgical History: No Pertinent History Cardiac: No Pertinent History Respiratory: Lobectomy Gastrointestinal: Cholecystectomy Genitourinary: No Pertinent History Musculoskeletal: No Pertinent History Female Surgical History: Tubal Ligation - Social History Smoking Status: Never smoker Exposure to second hand smoke: No Drug Use: none Patient Lives Alone: No - Nursing Vital Signs Nursing Vital Signs: Initial Vital Signs Temperature 97.7 F 03/11/20 14:46 Pulse Rate 83 03/11/20 14:46 Respiratory Rate 03/11/20 14:46 Blood Pressure 154/74 03/11/20 14:46 O2 Sat by Pulse Oximetry 98 03/11/20 14:46 Pain Scale Pain Intensity 0 - Physical Exam General Appearance: mild distress, alert Eye Exam: PERRL/EOMI Neck Exam: normal inspection, supple Respiratory Exam: respiratory distress, diminished breath sounds, rhonchi, w heezing Cardiovascular/Chest Exam: normal heart sounds, regular rate/rhythm Abdominal/Gastrointestinal Exam: soft, No tenderness, No distention, No mass Extremity Exam: non-tender, normal range of motion, normal inspection, no calf tenderness, no pedal edema Neurologic Exam: alert, oriented x 3, cooperative, heel seat pounder II-XII nml as tested, sensation nml, No motor deficits Skin Exam: normal color, warm, No dry SpO2 Interpretation: normal SpO2: 100 O2 Delivery: Room Air - Course Nursing assessment & vital signs reviewed: Yes EKG Interpreted by Me: RATE (80), NORMAL AXIS, NORMAL INTERVALS, Left Bundle Branch Block, Non-specific ST Changes - Radiology Exams Chest X-ray Interpretation: Reviewed by me, Pneumonia (Hazy right infrahilar infiltrate versus atelectasis otherwise the chest x-ray remains stable) Ordered Tests: Active Orders 24 hr Category Date Time Status EKG-ER Only STAT Care 03/11/20 14:55 Active IV Insertion STAT Care 03/11/20 14:55 Active CHEST 1 VIEW (PORTABLE) Stat Exams 03/11/20 14:55 Completed BLOOD CULTURE Stat Lab 03/11/20 15:20 Received CBC W DIFF Stat Lab 03/11/20 15:00 Completed CMP Stat Lab 03/11/20 15:00 Completed D-DIMER QUANTITATIVE Stat Lab 03/11/20 15:00 Completed Lactic Acid Stat Lab 03/11/20 14:55 Completed Lactic Acid Stat Lab 03/11/20 17:32 Completed MAGNESIUM Stat Lab 03/11/20 15:00 Completed NT PRO BNP Stat Lab 03/11/20 15:00 Completed PROTIME WITH INR Stat Lab 03/11/20 15:00 Completed TROPONIN Q3H Lab 03/11/20 15:00 Completed TROPONIN Q3H Lab 03/11/20 18:10 Received TROPONIN Q3H Lab 03/11/20 21:00 Ordered TROPONIN Q3H Lab 03/12/20 00:00 Ordered TROPONIN Q3H Lab 03/12/20 03:00 Ordered UA W/RFX UR CULTURE Stat Lab 03/11/20 16:02 Completed Respiratory Therapy Assessment DAILY RT 03/11/20 17:10 Active Medication Summary Generic Name Dose Route Start Last Admin Trade Name Freq PRN Reason Stop Dose Admin Sodium Chloride 1,000 mls @ 100 mls/hr 03/11/20 15:00 03/11/20 14:59 Sodium Chloride 0.9% 1000 Ml IV 04/10/20 14:59 100 mls/hr .Q10H MATTI Administration Discontinued Medications Generic Name Dose Route Start Last Admin Trade Name Bettina PRN Reason Stop Dose Admin Albuterol Sulfate 2.5 mg 03/11/20 14:55 03/11/20 16:00 Proventil 2.5 Mg/3 Ml Neb IH 03/11/20 14:56 2.5 mg STAT ONE Administration Albuterol Sulfate Confirm 03/11/20 15:14 Proventil Solution 2.5 Mg/0.5 Ml Administered 03/11/20 15:15 Dose 2.5 mg IH .STK-MED ONE Lab/Rad Data: Laboratory Result Diagrams 03/11/20 15:00 03/11/20 15:00 Laboratory Results 03/11/20 03/11/20 03/11/20 Range/Units 17:32 16:02 15:20 WBC (4.0-10.5) K/mm3 RBC (4.1-5.4) M/mm3 Hgb (12.0-16.0) gm/dl Hct (35-47) % MCV (78-100) fl MCH (26-32) pg MCHC (32-36) g/dl RDW (11.5-14.0) % Plt Count (150-450) K/mm3 MPV (7.5-11.0) fl Gran % (36.0-66.0) % Eos # (Auto) (0-0.5) Absolute Lymphs (auto) (1.0-4.6) Absolute Monos (auto) (0.0-1.3) Lymphocytes % (24.0-44.0) % Monocytes % (0.0-12.0) % Eosinophils % (0.00-5.0) % Basophils % (0.0-0.4) % Absolute Granulocytes (1.4-6.9) Basophils # (0-0.4) PT (9.95-12.35) SECONDS INR (0.8-3.0) D-Dimer (215-500) ng/mL Sodium (137-145) mmol/L Potassium (3.5-5.1) mmol/L Chloride (98-107) mmol/L Carbon Dioxide (22-30) mmol/L Anion Gap (5-15) MEQ/L BUN (7-17) mg/dL Creatinine (0.52-1.04) mg/dL Estimated GFR ML/MIN Glucose (74-106) mg/dL Lactic Acid 0.7 (0.4-2.0) Calcium (8.4-10.2) mg/dL Magnesium (1.6-2.3) mg/dL Total Bilirubin (0.2-1.3) mg/dL AST (14-36) U/L ALT (0-35) U/L Alkaline Phosphatase (38-126) U/L Troponin I (0.000-0.034) ng/mL NT-Pro-B Natriuret Pep (0-900) pg/mL Serum Total Protein (6.3-8.2) g/dL Albumin (3.5-5.0) g/dL Urine Color YELLOW (YELLOW) Urine Appearance SLIGHTLY CLOUDY (CLEAR) Urine pH 7.0 (5-6) Ur Specific Franklin 1.017 (1.005-1.025) Urine Protein NEGATIVE (Negative) Urine Ketones SMALL (NEGATIVE) Urine Blood NEGATIVE (0-5) Paul/ul Urine Nitrite NEGATIVE (NEGATIVE) Urine Bilirubin NEGATIVE (NEGATIVE) Urine Urobilinogen NEGATIVE (0-1) mg/dL Ur Leukocyte Esterase MODERATE (NEGATIVE) Urine WBC (Auto) 6-10 (0-5) /HPF Urine RBC (Auto) 0-2 (0-2) /HPF U Epithel Cells (Auto) RARE (FEW) /HPF Urine Bacteria (Auto) RARE (NEGATIVE) /HPF Urine Mucus (Auto) SLIGHT (NEGATIVE) /HPF Urine Culture Reflexed NO (NO) Urine Glucose NEGATIVE (NEGATIVE) mg/dL Influenza Type A Ag (NEGATIVE) Influenza Type B Ag (NEGATIVE) RSV (PCR) (Negative) SARS-CoV-2 (PCR) NEGATIVE (NEGATIVE) 03/11/20 03/11/20 03/11/20 Range/Units 15:20 15:00 15:00 WBC (4.0-10.5) K/mm3 RBC (4.1-5.4) M/mm3 Hgb (12.0-16.0) gm/dl Hct (35-47) % MCV (78-100) fl MCH (26-32) pg MCHC (32-36) g/dl RDW (11.5-14.0) % Plt Count (150-450) K/mm3 MPV (7.5-11.0) fl Gran % (36.0-66.0) % Eos # (Auto) (0-0.5) Absolute Lymphs (auto) (1.0-4.6) Absolute Monos (auto) (0.0-1.3) Lymphocytes % (24.0-44.0) % Monocytes % (0.0-12.0) % Eosinophils % (0.00-5.0) % Basophils % (0.0-0.4) % Absolute Granulocytes (1.4-6.9) Basophils # (0-0.4) PT 10.9 (9.95-12.35) SECONDS INR 0.96 (0.8-3.0) D-Dimer 962 H* (215-500) ng/mL Sodium (137-145) mmol/L Potassium (3.5-5.1) mmol/L Chloride (98-107) mmol/L Carbon Dioxide (22-30) mmol/L Anion Gap (5-15) MEQ/L BUN (7-17) mg/dL Creatinine (0.52-1.04) mg/dL Estimated GFR ML/MIN Glucose (74-106) mg/dL Lactic Acid (0.4-2.0) Calcium (8.4-10.2) mg/dL Magnesium (1.6-2.3) mg/dL Total Bilirubin (0.2-1.3) mg/dL AST (14-36) U/L ALT (0-35) U/L Alkaline Phosphatase (38-126) U/L Troponin I 0.037 H* (0.000-0.034) ng/mL NT-Pro-B Natriuret Pep (0-900) pg/mL Serum Total Protein (6.3-8.2) g/dL Albumin (3.5-5.0) g/dL Urine Color (YELLOW) Urine Appearance (CLEAR) Urine pH (5-6) Ur Specific Franklin (1.005-1.025) Urine Protein (Negative) Urine Ketones (NEGATIVE) Urine Blood (0-5) Paul/ul Urine Nitrite (NEGATIVE) Urine Bilirubin (NEGATIVE) Urine Urobilinogen (0-1) mg/dL Ur Leukocyte Esterase (NEGATIVE) Urine WBC (Auto) (0-5) /HPF Urine RBC (Auto) (0-2) /HPF U Epithel Cells (Auto) (FEW) /HPF Urine Bacteria (Auto) (NEGATIVE) /HPF Urine Mucus (Auto) (NEGATIVE) /HPF Urine Culture Reflexed (NO) Urine Glucose (NEGATIVE) mg/dL Influenza Type A Ag NEGATIVE (NEGATIVE) Influenza Type B Ag NEGATIVE (NEGATIVE) RSV (PCR) NEGATIVE (Negative) SARS-CoV-2 (PCR) (NEGATIVE) 03/11/20 03/11/20 03/11/20 Range/Units 15:00 15:00 14:55 WBC 13.0 H (4.0-10.5) K/mm3 RBC 4.67 (4.1-5.4) M/mm3 Hgb 12.5 (12.0-16.0) gm/dl Hct 38.3 (35-47) % MCV 82.0 (78-100) fl MCH 26.8 (26-32) pg MCHC 32.6 (32-36) g/dl RDW 14.0 (11.5-14.0) % Plt Count 276 (150-450) K/mm3 MPV 10.3 (7.5-11.0) fl Gran % 65.2 (36.0-66.0) % Eos # (Auto) 0.51 H (0-0.5) Absolute Lymphs (auto) 3.06 (1.0-4.6) Absolute Monos (auto) 0.94 (0.0-1.3) Lymphocytes % 23.5 L (24.0-44.0) % Monocytes % 7.2 (0.0-12.0) % Eosinophils % 3.9 (0.00-5.0) % Basophils % 0.2 (0.0-0.4) % Absolute Granulocytes 8.48 H (1.4-6.9) Basophils # 0.02 (0-0.4) PT (9.95-12.35) SECONDS INR (0.8-3.0) D-Dimer (215-500) ng/mL Sodium 136 L (137-145) mmol/L Potassium 3.8 (3.5-5.1) mmol/L Chloride 104 (98-107) mmol/L Carbon Dioxide 23 (22-30) mmol/L Anion Gap 12.4 (5-15) MEQ/L BUN 15 (7-17) mg/dL Creatinine 0.91 (0.52-1.04) mg/dL Estimated GFR > 60.0 ML/MIN Glucose 100 (74-106) mg/dL Lactic Acid 1.9 (0.4-2.0) Calcium 9.6 (8.4-10.2) mg/dL Magnesium 1.9 (1.6-2.3) mg/dL Total Bilirubin 0.80 (0.2-1.3) mg/dL AST 37 H (14-36) U/L ALT 30 (0-35) U/L Alkaline Phosphatase 71 (38-126) U/L Troponin I (0.000-0.034) ng/mL NT-Pro-B Natriuret Pep 158 (0-900) pg/mL Serum Total Protein 7.8 (6.3-8.2) g/dL Albumin 4.4 (3.5-5.0) g/dL Urine Color (YELLOW) Urine Appearance (CLEAR) Urine pH (5-6) Ur Specific Franklin (1.005-1.025) Urine Protein (Negative) Urine Ketones (NEGATIVE) Urine Blood (0-5) Paul/ul Urine Nitrite (NEGATIVE) Urine Bilirubin (NEGATIVE) Urine Urobilinogen (0-1) mg/dL Ur Leukocyte Esterase (NEGATIVE) Urine WBC (Auto) (0-5) /HPF Urine RBC (Auto) (0-2) /HPF U Epithel Cells (Auto) (FEW) /HPF Urine Bacteria (Auto) (NEGATIVE) /HPF Urine Mucus (Auto) (NEGATIVE) /HPF Urine Culture Reflexed (NO) Urine Glucose (NEGATIVE) mg/dL Influenza Type A Ag (NEGATIVE) Influenza Type B Ag (NEGATIVE) RSV (PCR) (Negative) SARS-CoV-2 (PCR) (NEGATIVE) - Progress Progress: unchanged Air Movement: good Progress Note: 03/11/20 18:[address] [place] and the patient will be admitted for IV antibiotics Blood Culture(s) Obtained: Yes Antibiotics given: Yes - Departure Departure Disposition: Observation Clinical Impression: Lower lobe pneumonia Condition: Stable Critical Care Time: No Referrals: HECTOR SPAIN MD [Primary Care Provider] -
[2020-03-11] MEDS ORDERED: Zofran 4 MG/2 ML VIAL IV PRN (19:39)
[2020-03-11] MEDS ORDERED: ROCEPHIN 1 Gm-D5w 50 ml Bag** 1 G/50 ML IVPB IV ONE (20:06)
[2020-03-11] MEDS ORDERED: Zithromax 500 MG/ 250 ML NaCl Premix 500 MG/250 ML IVPB IV ONE (20:06)
[2020-03-11] MEDS: PATIENT OWN MEDICATION IH SCH ×2 (20:15)
[2020-03-11] MEDS ORDERED: PROVENTIL 2.5 MG/3 ML NEB IH PRN (20:16)
[2020-03-11] MEDS ORDERED: TYLENOL 325 MG PO PRN (21:19)
[2020-03-11] MEDS: Coreg 3.125 MG PO SCH (21:30)
[2020-03-11] MEDS ORDERED: BABY ASPIRIN 81 MG CHEW PO SCH (22:00)
[2020-03-11] MEDS: hydroDIURIL 25 MG PO SCH (22:36)
[2020-03-11] MEDS: Zestril 5 MG PO SCH (22:36)
[2020-03-11] MEDS: Singulair 10 MG PO SCH (22:37)
[2020-03-11] MEDS: Cymbalta 30 MG Capsule PO SCH (22:37)
[2020-03-12 03:09] LABS: Absolute Neutrophil Ct (ANC) 2.98 (1.4-6.9); BASOPHIL % 0.4 % (0.0-0.4); Basophil (Absolute #) 0.03 (0-0.4); Eosinophil % 6.2 % (0.00-5.0); Eosinophil (Absolute #) 0.44 (0-0.5); Hematocrit 34.2 % (35-47); Lymphocyte (Absolute #) 2.84 (1.0-4.6); Mean Cell Volume 83.4 fl (78-100); Mean Corpuscular Hemoglobin 26.8 pg (26-32); Mean Corpuscular Hgb Concent. 32.2 g/dl (32-36); Mean Platelet Volume 10.1 fl (7.5-11.0); Monocyte (Absolute #) 0.81 (0.0-1.3); Monocytes % 11.4 % (0.0-12.0); Platelet Count 230 K/mm3 (150-450); Red Cell Distribution Width 13.9 % (11.5-14.0); White Blood Count 7.1 K/mm3 (4.0-10.5)
[2020-03-12 03:26] LABS: ALBUMIN 3.1 g/dL (3.5-5.0); ALKALINE PHOSPHATASE 59 U/L (38-126); ANION GAP 7.9 MEQ/L (5-15); BLOOD UREA NITROGEN 13 mg/dL (7-17); CHLORIDE 110 mmol/L (98-107); Calcium 8.5 mg/dL (8.4-10.2); Carbon Dioxide 24 mmol/L (22-30); Creatinine 1 0.86 mg/dL (0.52-1.04); EST GLOMERULAR FILTRATION RATE > 60.0 ML/MIN; Glucose 103 mg/dL (74-106); SGOT/AST 28 U/L (14-36); SGPT/ALT 22 U/L (0-35); SODIUM 138 mmol/L (137-145); Total Protein 5.9 g/dL (6.3-8.2)
[2020-03-12] MEDS ORDERED: MEDICATION INTERVENTION PO SCH (06:30)
[2020-03-12] MEDS: PATIENT OWN MEDICATION IH SCH ×5 (07:06→18:44)
[2020-03-12] MEDS: Coreg 3.125 MG PO SCH ×2 (09:54→21:42)
[2020-03-12] MEDS ORDERED: RALOXIFENE HCL 60 MG PO SCH (10:00)
[2020-03-12] MEDS ORDERED: Zithromax 500 MG/ 250 ML NaCl Premix 500 MG/250 ML IVPB IV SCH ×2 (10:00→22:00)
[2020-03-12] MEDS ORDERED: ROCEPHIN 1 Gm-D5w 50 ml Bag** 1 G/50 ML IVPB IV SCH ×2 (10:00→22:00)
--- NOTE | 2020-03-12 12:50 | PCM.HP ---
History of Present Illness - Chief Complaint Chief Complaint: cough, shortness of breath for 2 days History of Present Illness: is a 69 year old female who presents with a complaint of a chronic process which is gotten markedly worse in the last 24 hours she has a history of frequent bronchitis and episodes of pneumonia. She complains of chest pain and shortness of breath she is on several respiratory medicine she denies any fever chills or sweats the chest pain is across the breast area she believes it secondary to her severe coughing. - Review of Systems Constitutional: No Fever, No Chills Eyes: No Symptoms Ears, Nose, & Throat: No Symptoms Respiratory: No Cough, No Short Of Breath Cardiac: No Chest Pain, No Edema, No Syncope Abdominal/Gastrointestinal: No Abdominal Pain, No Nausea, No Vomiting, No Diarrhea Genitourinary Symptoms: No Dysuria Musculoskeletal: No Back Pain, No Neck Pain Skin: No Rash Neurological: No Dizziness, No Focal Weakness, No Sensory Changes Psychological: No Symptoms Endocrine: No Symptoms Hematologic/Lymphatic: No Symptoms Immunological/Allergic: No Symptoms Medications & Allergies Home Medications: Home Medication List Hydrochlorothiazide 12.5 mg PO DAILY 11/26/16 [History Confirmed 03/11/20] Montelukast Sodium [Singulair] 10 mg PO DAILY 11/26/16 [History Confirmed 03/11/20] Duloxetine HCl 90 mg PO DAILY 11/19/18 [History Confirmed 03/11/20] Acetaminophen 325 mg [Tylenol 325 mg] 650 mg PO Q4H PRN PRN tablet 11/21/18 [Rx Confirmed 03/11/20] Carvedilol 3.125 mg [Coreg 3.125 MG] 3.125 mg PO BID #60 tablet 11/21/18 [Rx Confirmed 03/11/20] lisinopriL [Zestril] 2.5 mg PO DAILY #30 tablet 11/21/18 [Rx Confirmed 03/11/20] Raloxifene HCl [Evista] 60 mg PO DAILY 01/16/19 [History Confirmed 03/11/20] Aspirin 81 gm Chew [Baby Aspirin 81 mg Chew] 81 mg PO DAILY #30 tab.chew 01/28/19 [Rx Confirmed 03/11/20] Arformoterol Tartrate [Brovana] 15 mcg NEB BID 03/11/20 [History Confirmed 03/11/20] Budesonide 0.5 mg NEB BID 03/11/20 [History Confirmed 03/11/20] Revefenacin [Yupelri] 175 mcg NEB DAILY 03/11/20 [History Confirmed 03/11/20] Allergies/Adverse Reactions: Allergies Allergy/AdvReac Type Severity Reaction Status Date / Time No Known Drug Allergies Allergy Verified 03/11/20 15:02 - Past Medical History Past Medical History: Yes Neurological History: No Pertinent History ENT History: No Pertinent History Cardiac History: Hypertension, Myocardial Infarction (OR) Respiratory History: Asthma, Pneumonia Endocrine Medical History: No Pertinent History Musculoskelatal History: Arthritis, Fibromyalgia, Osteoporosis GI Medical History: No Pertinent History History: No Pertinent History Pyscho-Social History: No Pertinent History Reproductive Disorders: No Pertinent History - Female History Are you now?: No - Past Surgical History Past Surgical History: Yes Neuro Surgical History: No Pertinent History Cardiac History: No Pertinent History Respiratory Surgery: Lobectomy GI Surgical History: Cholecystectomy Genitourinary Surgical Hx: No Pertinent History Musculskeletal Surgical Hx: No Pertinent History Female Surgical History: Tubal Ligation Other Surgical History: lobectomy upper rt - Social History Smoking Status: Never smoker Exposure to second hand smoke: No Alcohol: None Drug Use: none - Physical Exam Vital Signs: Vital Signs - 24 hr Temp Pulse Resp BP Pulse Ox 03/12/20 11:40 98.0 F 69 16 126/56 96 03/12/20 07:19 98.0 F 63 17 124/61 95 03/12/20 07:15 79 24 95 03/12/20 03:37 97.7 F 67 16 120/57 95 03/11/20 23:43 97.8 F 75 18 149/65 97 03/11/20 20:17 97.8 F 75 18 155/70 97 03/11/20 20:15 72 18 95 03/11/20 20:12 97 03/11/20 19:15 78 20 138/55 97 03/11/20 18:46 100 03/11/20 17:00 72 20 129/51 99 03/11/20 16:24 71 18 112/84 100 03/11/20 15:30 84 24 99 03/11/20 14:46 97.7 F 83 20 154/74 98 General Appearance: no apparent distress, alert Neurologic Exam: alert, oriented x 3, cooperative, normal mood/affect, nml cerebellar function, nml station & gait, sensation nml, No motor deficits Eye Exam: PERRL/EOMI, eyes nml inspection Ears, Nose, Throat Exam: normal ENT inspection, TMs normal, pharynx normal, moist mucous membranes Neck Exam: normal inspection, non-tender, supple, full range of motion Respiratory Exam: diminished breath sounds, No respiratory distress Cardiovascular Exam: regular rate/rhythm, normal heart sounds, normal peripheral pulses Gastrointestinal/Abdomen Exam: soft, normal bowel sounds, No tenderness, No mass Back Exam: normal inspection, normal range of motion, No CVA tenderness, No vertebral tenderness Extremity Exam: normal inspection, normal range of motion, pelvis stable Skin Exam: normal color, warm, dry, No rash Lymphatic Exam: No adenopathy Results - Labs Lab/Micro Results: Lab Results-Last 24 Hours 03/11/20 03/11/20 03/11/20 Range/Units 14:55 15:00 15:00 WBC 13.0 H (4.0-10.5) K/mm3 RBC 4.67 (4.1-5.4) M/mm3 Hgb 12.5 (12.0-16.0) gm/dl Hct 38.3 (35-47) % MCV 82.0 (78-100) fl MCH 26.8 (26-32) pg MCHC 32.6 (32-36) g/dl RDW 14.0 (11.5-14.0) % Plt Count 276 (150-450) K/mm3 MPV 10.3 (7.5-11.0) fl Gran % 65.2 (36.0-66.0) % Eos # (Auto) 0.51 H (0-0.5) Absolute Lymphs (auto) 3.06 (1.0-4.6) Absolute Monos (auto) 0.94 (0.0-1.3) Lymphocytes % 23.5 L (24.0-44.0) % Monocytes % 7.2 (0.0-12.0) % Eosinophils % 3.9 (0.00-5.0) % Basophils % 0.2 (0.0-0.4) % Absolute Granulocytes 8.48 H (1.4-6.9) Basophils # 0.02 (0-0.4) PT (9.95-12.35) SECONDS INR (0.8-3.0) D-Dimer (215-500) ng/mL Sodium 136 L (137-145) mmol/L Potassium 3.8 (3.5-5.1) mmol/L Chloride 104 (98-107) mmol/L Carbon Dioxide 23 (22-30) mmol/L Anion Gap 12.4 (5-15) MEQ/L BUN 15 (7-17) mg/dL Creatinine 0.91 (0.52-1.04) mg/dL Estimated GFR > 60.0 ML/MIN Glucose 100 (74-106) mg/dL Lactic Acid 1.9 (0.4-2.0) Calcium 9.6 (8.4-10.2) mg/dL Magnesium 1.9 (1.6-2.3) mg/dL Total Bilirubin 0.80 (0.2-1.3) mg/dL AST 37 H (14-36) U/L ALT 30 (0-35) U/L Alkaline Phosphatase 71 (38-126) U/L Troponin I (0.000-0.034) ng/mL NT-Pro-B Natriuret Pep 158 (0-900) pg/mL Serum Total Protein 7.8 (6.3-8.2) g/dL Albumin 4.4 (3.5-5.0) g/dL Urine Color (YELLOW) Urine Appearance (CLEAR) Urine pH (5-6) Ur Specific [place] (1.005-1.025) Urine Protein (Negative) Urine Ketones (NEGATIVE) Urine Blood (0-5) Paul/ul Urine Nitrite (NEGATIVE) Urine Bilirubin (NEGATIVE) Urine Urobilinogen (0-1) mg/dL Ur Leukocyte Esterase (NEGATIVE) Urine WBC (Auto) (0-5) /HPF Urine RBC (Auto) (0-2) /HPF U Epithel Cells (Auto) (FEW) /HPF Urine Bacteria (Auto) (NEGATIVE) /HPF Urine Mucus (Auto) (NEGATIVE) /HPF Urine Culture Reflexed (NO) Urine Glucose (NEGATIVE) mg/dL Influenza Type A Ag (NEGATIVE) Influenza Type B Ag (NEGATIVE) RSV (PCR) (Negative) SARS-CoV-2 (PCR) (NEGATIVE) 03/11/20 03/11/20 03/11/20 Range/Units 15:00 15:00 15:20 WBC (4.0-10.5) K/mm3 RBC (4.1-5.4) M/mm3 Hgb (12.0-16.0) gm/dl Hct (35-47) % MCV (78-100) fl MCH (26-32) pg MCHC (32-36) g/dl RDW (11.5-14.0) % Plt Count (150-450) K/mm3 MPV (7.5-11.0) fl Gran % (36.0-66.0) % Eos # (Auto) (0-0.5) Absolute Lymphs (auto) (1.0-4.6) Absolute Monos (auto) (0.0-1.3) Lymphocytes % (24.0-44.0) % Monocytes % (0.0-12.0) % Eosinophils % (0.00-5.0) % Basophils % (0.0-0.4) % Absolute Granulocytes (1.4-6.9) Basophils # (0-0.4) PT 10.9 (9.95-12.35) SECONDS INR 0.96 (0.8-3.0) D-Dimer 962 H* (215-500) ng/mL Sodium (137-145) mmol/L Potassium (3.5-5.1) mmol/L Chloride (98-107) mmol/L Carbon Dioxide (22-30) mmol/L Anion Gap (5-15) MEQ/L BUN (7-17) mg/dL Creatinine (0.52-1.04) mg/dL Estimated GFR ML/MIN Glucose (74-106) mg/dL Lactic Acid (0.4-2.0) Calcium (8.4-10.2) mg/dL Magnesium (1.6-2.3) mg/dL Total Bilirubin (0.2-1.3) mg/dL AST (14-36) U/L ALT (0-35) U/L Alkaline Phosphatase (38-126) U/L Troponin I 0.037 H* (0.000-0.034) ng/mL NT-Pro-B Natriuret Pep (0-900) pg/mL Serum Total Protein (6.3-8.2) g/dL Albumin (3.5-5.0) g/dL Urine Color (YELLOW) Urine Appearance (CLEAR) Urine pH (5-6) Ur Specific [place] (1.005-1.025) Urine Protein (Negative) Urine Ketones (NEGATIVE) Urine Blood (0-5) Paul/ul Urine Nitrite (NEGATIVE) Urine Bilirubin (NEGATIVE) Urine Urobilinogen (0-1) mg/dL Ur Leukocyte Esterase (NEGATIVE) Urine WBC (Auto) (0-5) /HPF Urine RBC (Auto) (0-2) /HPF U Epithel Cells (Auto) (FEW) /HPF Urine Bacteria (Auto) (NEGATIVE) /HPF Urine Mucus (Auto) (NEGATIVE) /HPF Urine Culture Reflexed (NO) Urine Glucose (NEGATIVE) mg/dL Influenza Type A Ag NEGATIVE (NEGATIVE) Influenza Type B Ag NEGATIVE (NEGATIVE) RSV (PCR) NEGATIVE (Negative) SARS-CoV-2 (PCR) (NEGATIVE) 03/11/20 03/11/20 03/11/20 Range/Units 15:20 16:02 17:32 WBC (4.0-10.5) K/mm3 RBC (4.1-5.4) M/mm3 Hgb (12.0-16.0) gm/dl Hct (35-47) % MCV (78-100) fl MCH (26-32) pg MCHC (32-36) g/dl RDW (11.5-14.0) % Plt Count (150-450) K/mm3 MPV (7.5-11.0) fl Gran % (36.0-66.0) % Eos # (Auto) (0-0.5) Absolute Lymphs (auto) (1.0-4.6) Absolute Monos (auto) (0.0-1.3) Lymphocytes % (24.0-44.0) % Monocytes % (0.0-12.0) % Eosinophils % (0.00-5.0) % Basophils % (0.0-0.4) % Absolute Granulocytes (1.4-6.9) Basophils # (0-0.4) PT (9.95-12.35) SECONDS INR (0.8-3.0) D-Dimer (215-500) ng/mL Sodium (137-145) mmol/L Potassium (3.5-5.1) mmol/L Chloride (98-107) mmol/L Carbon Dioxide (22-30) mmol/L Anion Gap (5-15) MEQ/L BUN (7-17) mg/dL Creatinine (0.52-1.04) mg/dL Estimated GFR ML/MIN Glucose (74-106) mg/dL Lactic Acid 0.7 (0.4-2.0) Calcium (8.4-10.2) mg/dL Magnesium (1.6-2.3) mg/dL Total Bilirubin (0.2-1.3) mg/dL AST (14-36) U/L ALT (0-35) U/L Alkaline Phosphatase (38-126) U/L Troponin I (0.000-0.034) ng/mL NT-Pro-B Natriuret Pep (0-900) pg/mL Serum Total Protein (6.3-8.2) g/dL Albumin (3.5-5.0) g/dL Urine Color YELLOW (YELLOW) Urine Appearance SLIGHTLY CLOUDY (CLEAR) Urine pH 7.0 (5-6) Ur Specific [place] 1.017 (1.005-1.025) Urine Protein NEGATIVE (Negative) Urine Ketones SMALL (NEGATIVE) Urine Blood NEGATIVE (0-5) Paul/ul Urine Nitrite NEGATIVE (NEGATIVE) Urine Bilirubin NEGATIVE (NEGATIVE) Urine Urobilinogen NEGATIVE (0-1) mg/dL Ur Leukocyte Esterase MODERATE (NEGATIVE) Urine WBC (Auto) 6-10 (0-5) /HPF Urine RBC (Auto) 0-2 (0-2) /HPF U Epithel Cells (Auto) RARE (FEW) /HPF Urine Bacteria (Auto) RARE (NEGATIVE) /HPF Urine Mucus (Auto) SLIGHT (NEGATIVE) /HPF Urine Culture Reflexed NO (NO) Urine Glucose NEGATIVE (NEGATIVE) mg/dL Influenza Type A Ag (NEGATIVE) Influenza Type B Ag (NEGATIVE) RSV (PCR) (Negative) SARS-CoV-2 (PCR) NEGATIVE (NEGATIVE) 03/11/20 03/11/20 03/12/20 Range/Units 18:10 21:28 00:20 WBC (4.0-10.5) K/mm3 RBC (4.1-5.4) M/mm3 Hgb (12.0-16.0) gm/dl Hct (35-47) % MCV (78-100) fl MCH (26-32) pg MCHC (32-36) g/dl RDW (11.5-14.0) % Plt Count (150-450) K/mm3 MPV (7.5-11.0) fl Gran % (36.0-66.0) % Eos # (Auto) (0-0.5) Absolute Lymphs (auto) (1.0-4.6) Absolute Monos (auto) (0.0-1.3) Lymphocytes % (24.0-44.0) % Monocytes % (0.0-12.0) % Eosinophils % (0.00-5.0) % Basophils % (0.0-0.4) % Absolute Granulocytes (1.4-6.9) Basophils # (0-0.4) PT (9.95-12.35) SECONDS INR (0.8-3.0) D-Dimer (215-500) ng/mL Sodium (137-145) mmol/L Potassium (3.5-5.1) mmol/L Chloride (98-107) mmol/L Carbon Dioxide (22-30) mmol/L Anion Gap (5-15) MEQ/L BUN (7-17) mg/dL Creatinine (0.52-1.04) mg/dL Estimated GFR ML/MIN Glucose (74-106) mg/dL Lactic Acid (0.4-2.0) Calcium (8.4-10.2) mg/dL Magnesium (1.6-2.3) mg/dL Total Bilirubin (0.2-1.3) mg/dL AST (14-36) U/L ALT (0-35) U/L Alkaline Phosphatase (38-126) U/L Troponin I < 0.012 < 0.012 < 0.012 (0.000-0.034) ng/mL NT-Pro-B Natriuret Pep (0-900) pg/mL Serum Total Protein (6.3-8.2) g/dL Albumin (3.5-5.0) g/dL Urine Color (YELLOW) Urine Appearance (CLEAR) Urine pH (5-6) Ur Specific [place] (1.005-1.025) Urine Protein (Negative) Urine Ketones (NEGATIVE) Urine Blood (0-5) Paul/ul Urine Nitrite (NEGATIVE) Urine Bilirubin (NEGATIVE) Urine Urobilinogen (0-1) mg/dL Ur Leukocyte Esterase (NEGATIVE) Urine WBC (Auto) (0-5) /HPF Urine RBC (Auto) (0-2) /HPF U Epithel Cells (Auto) (FEW) /HPF Urine Bacteria (Auto) (NEGATIVE) /HPF Urine Mucus (Auto) (NEGATIVE) /HPF Urine Culture Reflexed (NO) Urine Glucose (NEGATIVE) mg/dL Influenza Type A Ag (NEGATIVE) Influenza Type B Ag (NEGATIVE) RSV (PCR) (Negative) SARS-CoV-2 (PCR) (NEGATIVE) 03/12/20 03/12/20 03/12/20 Range/Units 03:00 03:04 03:04 WBC 7.1 (4.0-10.5) K/mm3 RBC 4.10 (4.1-5.4) M/mm3 Hgb 11.0 L (12.0-16.0) gm/dl Hct 34.2 L (35-47) % MCV 83.4 (78-100) fl MCH 26.8 (26-32) pg MCHC 32.2 (32-36) g/dl RDW 13.9 (11.5-14.0) % Plt Count 230 (150-450) K/mm3 MPV 10.1 (7.5-11.0) fl Gran % 42.0 (36.0-66.0) % Eos # (Auto) 0.44 (0-0.5) Absolute Lymphs (auto) 2.84 (1.0-4.6) Absolute Monos (auto) 0.81 (0.0-1.3) Lymphocytes % 40.0 (24.0-44.0) % Monocytes % 11.4 (0.0-12.0) % Eosinophils % 6.2 H (0.00-5.0) % Basophils % 0.4 (0.0-0.4) % Absolute Granulocytes 2.98 (1.4-6.9) Basophils # 0.03 (0-0.4) PT (9.95-12.35) SECONDS INR (0.8-3.0) D-Dimer (215-500) ng/mL Sodium (137-145) mmol/L Potassium (3.5-5.1) mmol/L Chloride (98-107) mmol/L Carbon Dioxide (22-30) mmol/L Anion Gap (5-15) MEQ/L BUN (7-17) mg/dL Creatinine (0.52-1.04) mg/dL Estimated GFR ML/MIN Glucose (74-106) mg/dL Lactic Acid 1.1 (0.4-2.0) Calcium (8.4-10.2) mg/dL Magnesium (1.6-2.3) mg/dL Total Bilirubin (0.2-1.3) mg/dL AST (14-36) U/L ALT (0-35) U/L Alkaline Phosphatase (38-126) U/L Troponin I < 0.012 (0.000-0.034) ng/mL NT-Pro-B Natriuret Pep (0-900) pg/mL Serum Total Protein (6.3-8.2) g/dL Albumin (3.5-5.0) g/dL Urine Color (YELLOW) Urine Appearance (CLEAR) Urine pH (5-6) Ur Specific [place] (1.005-1.025) Urine Protein (Negative) Urine Ketones (NEGATIVE) Urine Blood (0-5) Paul/ul Urine Nitrite (NEGATIVE) Urine Bilirubin (NEGATIVE) Urine Urobilinogen (0-1) mg/dL Ur Leukocyte Esterase (NEGATIVE) Urine WBC (Auto) (0-5) /HPF Urine RBC (Auto) (0-2) /HPF U Epithel Cells (Auto) (FEW) /HPF Urine Bacteria (Auto) (NEGATIVE) /HPF Urine Mucus (Auto) (NEGATIVE) /HPF Urine Culture Reflexed (NO) Urine Glucose (NEGATIVE) mg/dL Influenza Type A Ag (NEGATIVE) Influenza Type B Ag (NEGATIVE) RSV (PCR) (Negative) SARS-CoV-2 (PCR) (NEGATIVE) 03/12/20 Range/Units 03:04 WBC (4.0-10.5) K/mm3 RBC (4.1-5.4) M/mm3 Hgb (12.0-16.0) gm/dl Hct (35-47) % MCV (78-100) fl MCH (26-32) pg MCHC (32-36) g/dl RDW (11.5-14.0) % Plt Count (150-450) K/mm3 MPV (7.5-11.0) fl Gran % (36.0-66.0) % Eos # (Auto) (0-0.5) Absolute Lymphs (auto) (1.0-4.6) Absolute Monos (auto) (0.0-1.3) Lymphocytes % (24.0-44.0) % Monocytes % (0.0-12.0) % Eosinophils % (0.00-5.0) % Basophils % (0.0-0.4) % Absolute Granulocytes (1.4-6.9) Basophils # (0-0.4) PT (9.95-12.35) SECONDS INR (0.8-3.0) D-Dimer (215-500) ng/mL Sodium 138 (137-145) mmol/L Potassium 4.0 (3.5-5.1) mmol/L Chloride 110 H (98-107) mmol/L Carbon Dioxide 24 (22-30) mmol/L Anion Gap 7.9 (5-15) MEQ/L BUN 13 (7-17) mg/dL Creatinine 0.86 (0.52-1.04) mg/dL Estimated GFR > 60.0 ML/MIN Glucose 103 (74-106) mg/dL Lactic Acid (0.4-2.0) Calcium 8.5 (8.4-10.2) mg/dL Magnesium (1.6-2.3) mg/dL Total Bilirubin 0.40 (0.2-1.3) mg/dL AST 28 (14-36) U/L ALT 22 (0-35) U/L Alkaline Phosphatase 59 (38-126) U/L Troponin I (0.000-0.034) ng/mL NT-Pro-B Natriuret Pep (0-900) pg/mL Serum Total Protein 5.9 L (6.3-8.2) g/dL Albumin 3.1 L (3.5-5.0) g/dL Urine Color (YELLOW) Urine Appearance (CLEAR) Urine pH (5-6) Ur Specific [place] (1.005-1.025) Urine Protein (Negative) Urine Ketones (NEGATIVE) Urine Blood (0-5) Paul/ul Urine Nitrite (NEGATIVE) Urine Bilirubin (NEGATIVE) Urine Urobilinogen (0-1) mg/dL Ur Leukocyte Esterase (NEGATIVE) Urine WBC (Auto) (0-5) /HPF Urine RBC (Auto) (0-2) /HPF U Epithel Cells (Auto) (FEW) /HPF Urine Bacteria (Auto) (NEGATIVE) /HPF Urine Mucus (Auto) (NEGATIVE) /HPF Urine Culture Reflexed (NO) Urine Glucose (NEGATIVE) mg/dL Influenza Type A Ag (NEGATIVE) Influenza Type B Ag (NEGATIVE) RSV (PCR) (Negative) SARS-CoV-2 (PCR) (NEGATIVE) - Radiology Impressions Radiology Exams & Impressions: Radiology Procedures Category Date Time Status CHEST 1 VIEW (PORTABLE) Stat Exams 03/11/20 14:55 Completed - Other Procedures and Tests Respiratory Therapy 03/11/20 19:00 Respiratory Nebulizer BID 03/11/20 20:13 Peak Expiratory Flow Rate ONCE Respiratory Therapy Assessment DAILY 03/12/20 07:00 Respiratory Nebulizer DAILY Assessment/Plan (1) Lower lobe pneumonia Current Visit: Yes Status: Acute Qualifiers: Pneumonia type: due to unspecified organism Laterality: right Qualified Code(s): J18.9 - Pneumonia, unspecified organism Assessment & Plan: Chief Complaint Diagnosis rt lobe pneumonia Allergies Allergy/AdvReac Type Severity Reaction Status Date / Time No Known Drug Allergies Allergy Verified 03/11/20 15:02 Vital Signs (Last 24 hours) Temp Pulse Resp BP Pulse Ox 03/12/20 11:40 98.0 F 69 16 126/56 96 03/12/20 07:19 98.0 F 63 17 124/61 95 03/12/20 07:15 79 24 95 03/12/20 03:37 97.7 F 67 16 120/57 95 03/11/20 23:43 97.8 F 75 18 149/65 97 03/11/20 20:17 97.8 F 75 18 155/70 97 03/11/20 20:15 72 18 95 03/11/20 20:12 97 03/11/20 19:15 78 20 138/55 97 03/11/20 18:46 100 03/11/20 17:00 72 20 129/51 99 03/11/20 16:24 71 18 112/84 100 03/11/20 15:30 84 24 99 03/11/20 14:46 97.7 F 83 20 154/74 98 Home Medications Medication Instructions Recorded Confirmed Last Taken Type Arformoterol Tartrate [Brovana] 15 mcg NEB BID 03/11/20 03/11/20 03/11/20 History Budesonide 0.5 mg NEB BID 03/11/20 03/11/20 03/11/20 History Revefenacin [Yupelri] 175 mcg NEB DAILY 03/11/20 03/11/20 03/11/20 History Current Medications Generic Name Dose Route Start Last Admin Trade Name Freq PRN Reason Stop Dose Admin Acetaminophen 650 mg 03/11/20 21:19 03/11/20 21:28 Tylenol 325 Mg PO 04/10/20 21:18 650 mg Q4H PRN PRN Administration PAIN AND/OR FEVER Albuterol Sulfate 2.5 mg 03/11/20 20:16 Proventil 2.5 Mg/3 Ml Neb IH 04/10/20 20:15 Q4H PRN PRN SHORTNESS OF BREATH/WHEEZING Aspirin 81 mg 03/12/20 22:00 Ecotrin 81 Mg PO 04/11/20 21:59 QHS MATTI Carvedilol 3.125 mg 03/11/20 22:00 03/12/20 09:54 Coreg 3.125 Mg PO 04/10/20 21:59 3.125 mg BID MATTI Administration Duloxetine HCl 90 mg 03/11/20 22:00 03/11/20 22:37 Cymbalta 30 Mg Capsule PO 04/10/20 21:59 90 mg HS MATTI Administration Hydrochlorothiazide 12.5 mg 03/11/20 22:00 03/11/20 22:36 Hydrodiuril 25 Mg PO 04/10/20 21:59 12.5 mg HS MATTI Administration Ceftriaxone Sodium/Dextrose 1 g in 50 mls @ 100 mls/hr 03/12/20 22:00 Rocephin 1 Gm-D5w 50 Ml Bag IV 04/11/20 09:59 QPM MATTI Azithromycin 500 mg in 250 mls @ 250 mls/hr 03/12/20 22:00 Zithromax 500 Mg/ 250 Ml Nacl Premix IV 04/11/20 09:59 QPM MATTI Lisinopril 2.5 mg 03/11/20 22:00 03/11/20 22:36 Zestril 5 Mg PO 04/10/20 21:59 2.5 mg HS MATTI Administration Miscellaneous Information 1 each 03/12/20 06:30 Medication Intervention PO 04/11/20 06:29 .RN TO CHECK ON MATTI Montelukast Sodium 10 mg 03/11/20 22:00 03/11/20 22:37 Singulair 10 Mg PO 04/10/20 21:59 10 mg HS MATTI Administration Ondansetron HCl 4 mg 03/11/20 19:39 Zofran 4 Mg/2 Ml Vial IV 04/10/20 19:38 Q6H PRN PRN NAUSEA/VOMITING Yupelri Nebule 1 each 03/12/20 10:00 03/12/20 07:13 IH 04/11/20 09:59 1 each DAILY MATTI Administration Brovana Nebule 1 each 03/11/20 19:00 03/12/20 07:06 IH 04/10/20 18:59 1 each BIDRT MATTI Administration Budesonide 0.5mg 1 each 03/11/20 19:00 03/12/20 07:06 Nebule IH 04/10/20 18:59 1 each BIDRT MATTI Administration Discontinued Medications Generic Name Dose Route Start Last Admin Trade Name Freq PRN Reason Stop Dose Admin Albuterol Sulfate 2.5 mg 03/11/20 14:55 03/11/20 16:00 Proventil 2.5 Mg/3 Ml Neb 03/11/20 14:56 2.5 mg STAT ONE Administration Albuterol Sulfate Confirm 03/11/20 15:14 Proventil Solution 2.5 Mg/0.5 Ml Administered 03/11/20 15:15 Dose 2.5 mg IH .STK-MED ONE Aspirin 81 mg 03/11/20 22:00 03/11/20 22:36 Baby Aspirin 81 Mg Chew PO 04/10/20 21:59 81 mg QHS MATTI Administration Sodium Chloride 1,000 mls @ 100 mls/hr 03/11/20 15:00 03/11/20 14:59 Sodium Chloride 0.9% 1000 Ml IV 04/10/20 14:59 100 mls/hr .Q10H MATTI Administration Sodium Chloride Confirm 03/11/20 14:58 Sodium Chloride 0.9% 1000 Ml Administered 03/11/20 14:59 Dose 1,000 mls @ ud .ROUTE .STK-MED ONE Azithromycin 500 mg in 250 mls @ 250 mls/hr 03/12/20 10:00 03/11/20 21:35 Zithromax 500 Mg/ 250 Ml Nacl Premix IV 04/11/20 09:59 250 mls/hr Q24H10 MATTI Administration Ceftriaxone Sodium/Dextrose 1 g in 50 mls @ 100 mls/hr 03/12/20 10:00 03/11/20 20:58 Rocephin 1 Gm-D5w 50 Ml Bag IV 04/11/20 09:59 100 mls/hr Q24H10 MATTI Administration Azithromycin Confirm 03/11/20 20:06 Zithromax 500 Mg/ 250 Ml Nacl Premix Administered 03/11/20 20:07 Dose 500 mg in 250 mls @ ud IV .STK-MED ONE Ceftriaxone Sodium/Dextrose Confirm 03/11/20 20:06 Rocephin 1 Gm-D5w 50 Ml Bag Administered 03/11/20 20:07 Dose 1 g in 50 mls @ ud IV .STK-MED ONE Intake & Output (Last 24 hours) 03/10/20 03/11/20 03/12/20 03/13/20 11:59 11:59 11:59 11:59 Intake Total 1182 Output Total 700 Balance 482 Weight 74.7 kg Microbiology Results (Last 24 hours) 03/11/20 15:20 Blood Blood Culture Gram Stain - Pending 03/11/20 15:20 Blood Blood Culture - Pending 03/11/20 15:00 Blood Blood Culture Gram Stain - Pending 03/11/20 15:00 Blood Blood Culture - Pending Laboratory Results (Last 24 hours) 03/12/20 03/12/20 03/12/20 03:04 03:04 03:04 WBC 7.1 RBC 4.10 Hgb 11.0 L Hct 34.2 L MCV 83.4 MCH 26.8 MCHC 32.2 RDW 13.9 Plt Count 230 MPV 10.1 Gran % 42.0 Eos # (Auto) 0.44 Absolute Lymphs (auto) 2.84 Absolute Monos (auto) 0.81 Lymphocytes % 40.0 Monocytes % 11.4 Eosinophils % 6.2 H Basophils % 0.4 Absolute Granulocytes 2.98 Basophils # 0.03 PT INR D-Dimer Sodium 138 Potassium 4.0 Chloride 110 H Carbon Dioxide 24 Anion Gap 7.9 BUN 13 Creatinine 0.86 Estimated GFR > 60.0 Glucose 103 Lactic Acid Calcium 8.5 Magnesium Total Bilirubin 0.40 AST 28 ALT 22 Alkaline Phosphatase 59 Troponin I < 0.012 NT-Pro-B Natriuret Pep Serum Total Protein 5.9 L Albumin 3.1 L Urine Color Urine Appearance Urine pH Ur Specific [place] Urine Protein Urine Ketones Urine Blood Urine Nitrite Urine Bilirubin Urine Urobilinogen Ur Leukocyte Esterase Urine WBC (Auto) Urine RBC (Auto) U Epithel Cells (Auto) Urine Bacteria (Auto) Urine Mucus (Auto) Urine Culture Reflexed Urine Glucose Influenza Type A Ag Influenza Type B Ag RSV (PCR) SARS-CoV-2 (PCR) 03/12/20 03/12/20 03/11/20 03:00 00:20 21:28 WBC RBC Hgb Hct MCV MCH MCHC RDW Plt Count MPV Gran % Eos # (Auto) Absolute Lymphs (auto) Absolute Monos (auto) Lymphocytes % Monocytes % Eosinophils % Basophils % Absolute Granulocytes Basophils # PT INR D-Dimer Sodium Potassium Chloride Carbon Dioxide Anion Gap BUN Creatinine Estimated GFR Glucose Lactic Acid 1.1 Calcium Magnesium Total Bilirubin AST ALT Alkaline Phosphatase Troponin I < 0.012 < 0.012 NT-Pro-B Natriuret Pep Serum Total Protein Albumin Urine Color Urine Appearance Urine pH Ur Specific [place] Urine Protein Urine Ketones Urine Blood Urine Nitrite Urine Bilirubin Urine Urobilinogen Ur Leukocyte Esterase Urine WBC (Auto) Urine RBC (Auto) U Epithel Cells (Auto) Urine Bacteria (Auto) Urine Mucus (Auto) Urine Culture Reflexed Urine Glucose Influenza Type A Ag Influenza Type B Ag RSV (PCR) SARS-CoV-2 (PCR) 03/11/20 03/11/20 03/11/20 18:10 17:32 16:02 WBC RBC Hgb Hct MCV MCH MCHC RDW Plt Count MPV Gran % Eos # (Auto) Absolute Lymphs (auto) Absolute Monos (auto) Lymphocytes % Monocytes % Eosinophils % Basophils % Absolute Granulocytes Basophils # PT INR D-Dimer Sodium Potassium Chloride Carbon Dioxide Anion Gap BUN Creatinine Estimated GFR Glucose Lactic Acid 0.7 Calcium Magnesium Total Bilirubin AST ALT Alkaline Phosphatase Troponin I < 0.012 NT-Pro-B Natriuret Pep Serum Total Protein Albumin Urine Color YELLOW Urine Appearance SLIGHTLY CLOUDY Urine pH 7.0 Ur Specific [place] 1.017 Urine Protein NEGATIVE Urine Ketones SMALL Urine Blood NEGATIVE Urine Nitrite NEGATIVE Urine Bilirubin NEGATIVE Urine Urobilinogen NEGATIVE Ur Leukocyte Esterase MODERATE Urine WBC (Auto) 6-10 Urine RBC (Auto) 0-2 U Epithel Cells (Auto) RARE Urine Bacteria (Auto) RARE Urine Mucus (Auto) SLIGHT Urine Culture Reflexed NO Urine Glucose NEGATIVE Influenza Type A Ag Influenza Type B Ag RSV (PCR) SARS-CoV-2 (PCR) 03/11/20 03/11/20 03/11/20 15:20 15:20 15:00 WBC RBC Hgb Hct MCV MCH MCHC RDW Plt Count MPV Gran % Eos # (Auto) Absolute Lymphs (auto) Absolute Monos (auto) Lymphocytes % Monocytes % Eosinophils % Basophils % Absolute Granulocytes Basophils # PT INR D-Dimer Sodium Potassium Chloride Carbon Dioxide Anion Gap BUN Creatinine Estimated GFR Glucose Lactic Acid Calcium Magnesium Total Bilirubin AST ALT Alkaline Phosphatase Troponin I 0.037 H* NT-Pro-B Natriuret Pep Serum Total Protein Albumin Urine Color Urine Appearance Urine pH Ur Specific [place] Urine Protein Urine Ketones Urine Blood Urine Nitrite Urine Bilirubin Urine Urobilinogen Ur Leukocyte Esterase Urine WBC (Auto) Urine RBC (Auto) U Epithel Cells (Auto) Urine Bacteria (Auto) Urine Mucus (Auto) Urine Culture Reflexed Urine Glucose Influenza Type A Ag NEGATIVE Influenza Type B Ag NEGATIVE RSV (PCR) NEGATIVE SARS-CoV-2 (PCR) NEGATIVE 03/11/20 03/11/20 03/11/20 15:00 15:00 15:00 WBC 13.0 H RBC 4.67 Hgb 12.5 Hct 38.3 MCV 82.0 MCH 26.8 MCHC 32.6 RDW 14.0 Plt Count 276 MPV 10.3 Gran % 65.2 Eos # (Auto) 0.51 H Absolute Lymphs (auto) 3.06 Absolute Monos (auto) 0.94 Lymphocytes % 23.5 L Monocytes % 7.2 Eosinophils % 3.9 Basophils % 0.2 Absolute Granulocytes 8.48 H Basophils # 0.02 PT 10.9 INR 0.96 D-Dimer 962 H* Sodium 136 L Potassium 3.8 Chloride 104 Carbon Dioxide 23 Anion Gap 12.4 BUN 15 Creatinine 0.91 Estimated GFR > 60.0 Glucose 100 Lactic Acid Calcium 9.6 Magnesium 1.9 Total Bilirubin 0.80 AST 37 H ALT 30 Alkaline Phosphatase 71 Troponin I NT-Pro-B Natriuret Pep 158 Serum Total Protein 7.8 Albumin 4.4 Urine Color Urine Appearance Urine pH Ur Specific [place] Urine Protein Urine Ketones Urine Blood Urine Nitrite Urine Bilirubin Urine Urobilinogen Ur Leukocyte Esterase Urine WBC (Auto) Urine RBC (Auto) U Epithel Cells (Auto) Urine Bacteria (Auto) Urine Mucus (Auto) Urine Culture Reflexed Urine Glucose Influenza Type A Ag Influenza Type B Ag RSV (PCR) SARS-CoV-2 (PCR) 03/11/20 14:55 WBC RBC Hgb Hct MCV MCH MCHC RDW Plt Count MPV Gran % Eos # (Auto) Absolute Lymphs (auto) Absolute Monos (auto) Lymphocytes % Monocytes % Eosinophils % Basophils % Absolute Granulocytes Basophils # PT INR D-Dimer Sodium Potassium Chloride Carbon Dioxide Anion Gap BUN Creatinine Estimated GFR Glucose Lactic Acid 1.9 Calcium Magnesium Total Bilirubin AST ALT Alkaline Phosphatase Troponin I NT-Pro-B Natriuret Pep Serum Total Protein Albumin Urine Color Urine Appearance Urine pH Ur Specific [place] Urine Protein Urine Ketones Urine Blood Urine Nitrite Urine Bilirubin Urine Urobilinogen Ur Leukocyte Esterase Urine WBC (Auto) Urine RBC (Auto) U Epithel Cells (Auto) Urine Bacteria (Auto) Urine Mucus (Auto) Urine Culture Reflexed Urine Glucose Influenza Type A Ag Influenza Type B Ag RSV (PCR) SARS-CoV-2 (PCR) Orders (Last 24 hours) Category Date Time Status Up Ad Priscilla ONCE Activity 03/11/20 19:39 Active Code Status Order ROUTINE Care 03/11/20 19:39 Active EKG-ER Only STAT Care 03/11/20 14:55 Completed IV Care Q6H Care 03/11/20 19:39 Active IV Insertion STAT Care 03/11/20 14:[address] in Observation ROUTINE Care 03/11/20 19:39 Active Telemetry q6h Care 03/11/20 19:39 Active Cardio-Pulmonary Rehab .as ordered Cons 03/11/20 20:16 Active House Regular Diet Diet 03/12/20 Breakfast Active CHEST 1 VIEW (PORTABLE) Stat Exams 03/11/20 14:55 Completed BLOOD CULTURE Stat Lab 03/11/20 15:20 Received CBC W DIFF AM.LAB Lab 03/12/20 03:04 Completed CBC W DIFF Stat Lab 03/11/20 15:00 Completed CMP AM.LAB Lab 03/12/20 03:04 Completed CMP Stat Lab 03/11/20 15:00 Completed D-DIMER QUANTITATIVE Stat Lab 03/11/20 15:00 Completed FLU/RSV Panel Stat Lab 03/11/20 15:20 Completed Lactic Acid AM.LAB Lab 03/12/20 03:00 Completed Lactic Acid Stat Lab 03/11/20 14:55 Completed Lactic Acid Stat Lab 03/11/20 17:32 Completed MAGNESIUM Stat Lab 03/11/20 15:00 Completed NT PRO BNP Stat Lab 03/11/20 15:00 Completed PROTIME WITH INR Stat Lab 03/11/20 15:00 Completed TROPONIN Q3H Lab 03/11/20 15:00 Completed TROPONIN Q3H Lab 03/11/20 18:10 Completed TROPONIN Q3H Lab 03/11/20 21:28 Completed TROPONIN Q3H Lab 03/12/20 00:20 Completed TROPONIN Q3H Lab 03/12/20 03:04 Completed UA W/RFX UR CULTURE Stat Lab 03/11/20 16:02 Completed Acetaminophen 325 mg [Tylenol 325 mg] Med 03/11/20 21:19 Active 650 mg PO Q4H PRN PRN Albuterol 2.5 mg/0.5 ml [PROVENTIL Solution 2.5 MG/0 Med 03/11/20 15:14 Discontinued .5 ML] 2.5 mg IH .STK-MED ONE Albuterol 2.5 mg/3 ml Neb [Proventil 2.5 mg/3 ml Neb Med 03/11/20 20:16 Active ] 2.5 mg IH Q4H PRN PRN Albuterol 2.5 mg/3 ml Neb [Proventil 2.5 mg/3 ml Neb Med 03/11/20 14:55 Discontinued ] 2.5 mg IH STAT ONE Aspirin 81 gm Chew [Baby Aspirin 81 mg Chew] Med 03/11/20 22:00 Discontinued 81 mg PO QHS Aspirin EC 81 mg [Ecotrin 81 mg] Med 03/12/20 22:00 Active 81 mg PO QHS Azithromycin 500 mg/250 ml [Zithromax 500 MG/ 250 ML Med 03/12/20 10:00 Discontinued NaCl Premix] 500 mg in 250 ml IV Q24H10 Azithromycin 500 mg/250 ml [Zithromax 500 MG/ 250 ML Med 03/12/20 22:00 Active NaCl Premix] 500 mg in 250 ml IV QPM Azithromycin 500 mg/250 ml [Zithromax 500 MG/ 250 ML Med 03/11/20 20:06 Discontinued NaCl Premix] 500 mg in 250 ml IV UD Carvedilol 3.125 mg [Coreg 3.125 MG] Med 03/11/20 22:00 Active 3.125 mg PO BID Ceftriaxone 1 GM/50 ML PREMIX* [ROCEPHIN 1 Gm-D5w 50 ml Med 03/12/20 10:00 Discontinued Bag] 1 g in 50 ml IV Q24H10 Ceftriaxone 1 GM/50 ML PREMIX* [ROCEPHIN 1 Gm-D5w 50 ml Med 03/12/20 22:00 Active Bag] 1 g in 50 ml IV QPM Ceftriaxone 1 GM/50 ML PREMIX* [ROCEPHIN 1 Gm-D5w 50 ml Med 03/11/20 20:06 Discontinued Bag] 1 g in 50 ml IV UD Duloxetine HCl 30 mg [Cymbalta 30 MG Capsule] Med 03/11/20 22:00 Active 90 mg PO HS Hydrochlorothiazide 25 mg [hydroDIURIL 25 MG] Med 03/11/20 22:00 Active 12.5 mg PO HS Lisinopril 5 mg [Zestril 5 MG] Med 03/11/20 22:00 Active 2.5 mg PO HS Medication Intervention Med 03/12/20 06:30 Active 1 each PO .RN TO CHECK ON Montelukast Sodium 10 mg [Singulair 10 MG] Med 03/11/20 22:00 Active 10 mg PO HS NaCl 0.9% 1000 ml [Sodium Chloride 0.9% 1000 ML] 1,000 Med 03/11/20 14:58 Discontinued ml .ROUTE UD NaCl 0.9% 1000 ml [Sodium Chloride 0.9% 1000 ML] 1,000 Med 03/11/20 15:00 Discontinued ml IV 100 mls/hr Ondansetron HCl 4 mg/2 ml [Zofran 4 MG/2 ML VIAL] Med 09/09/20 19:39 Active 4 mg IV Q6H PRN PRN Patient Own Med [Patient Own Medication] Med 03/11/20 19:00 Active 1 each IH BIDRT Patient Own Med [Patient Own Medication] Med 03/11/20 19:00 Active 1 each IH BIDRT Patient Own Med [Patient Own Medication] Med 03/12/20 10:00 Active 1 each IH DAILY Peak Expiratory Flow Rate ONCE RT 03/11/20 20:13 Active Pulse Oximetry ROUTINE RT 03/11/20 20:12 Active RT Screen per Nursing Assess ONCE RT 03/11/20 20:52 Completed Respiratory Nebulizer BID RT 03/11/20 19:00 Active Respiratory Nebulizer BID RT 03/11/20 19:00 Completed Respiratory Nebulizer DAILY RT 03/12/20 07:00 Active Respiratory Therapy Assessment DAILY RT 03/11/20 17:10 Completed Respiratory Therapy Assessment DAILY RT 03/11/20 20:13 Active Code(s): J18.9 - PNEUMONIA, UNSPECIFIED ORGANISM (2) Acute exacerbation of chronic bronchitis Current Visit: Yes Status: Acute Code(s): J20.9 - ACUTE BRONCHITIS, UNSPECIFIED; J42 - UNSPECIFIED CHRONIC BRONCHITIS
[2020-03-12] MEDS: Cymbalta 30 MG Capsule PO SCH (21:40)
[2020-03-12] MEDS: Singulair 10 MG PO SCH (21:41)
[2020-03-12] MEDS: Zestril 5 MG PO SCH (21:42)
[2020-03-12] MEDS: hydroDIURIL 25 MG PO SCH (21:43)
[2020-03-12] MEDS ORDERED: ECOTRIN 81 MG PO SCH (22:00)
[2020-03-13] MEDS: PATIENT OWN MEDICATION IH SCH ×3 (07:30→07:31)
[2020-03-13] MEDS: Coreg 3.125 MG PO SCH (08:57)
[2020-03-13 11:30] VITALS: BP 126/60; PULSE 72; O2SAT 96
--- NOTE | 2020-03-13 11:58 | PCM.DS ---
Discharge Summary Date of Admission: 03/11/20 19:35 Admitting Physician: HECTOR SPAIN Primary Care Provider: HECTOR SPAIN Allergies Allergies No Known Drug Allergies Allergy (Verified 03/11/20 15:02) Hospital Summary - Hospital Course Hospital Course: Chief Complaint Diagnosis cough, shortness of breath for 2 days Allergies Allergy/AdvReac Type Severity Reaction Status Date / Time No Known Drug Allergies Allergy Verified 03/11/20 15:02 Vital Signs (Last 24 hours) Temp Pulse Resp BP BP Pulse Ox 03/13/20 11:29 98.3 F 72 18 126/60 96 03/13/20 07:19 97.9 F 71 18 154/67 92 L 03/13/20 07:00 67 16 93 L 03/13/20 04:00 97.7 F 70 19 118/55 94 L 03/13/20 00:00 97.6 F 80 17 129/65 95 03/12/20 19:57 98.4 F 75 18 137/63 93 L 03/12/20 18:43 73 18 94 L 03/12/20 16:00 98.4 F 74 16 119/57 96 Home Medications Medication Instructions Recorded Confirmed Last Taken Type Arformoterol Tartrate [Brovana] 15 mcg NEB BID 03/11/20 03/11/20 03/11/20 History Budesonide 0.5 mg NEB BID 03/11/20 03/11/20 03/11/20 History Revefenacin [Yupelri] 175 mcg NEB DAILY 03/11/20 03/11/20 03/11/20 History Current Medications Generic Name Dose Route Start Last Admin Trade Name Freq PRN Reason Stop Dose Admin Acetaminophen 650 mg 03/11/20 21:19 03/11/20 21:28 Tylenol 325 Mg PO 04/10/20 21:18 650 mg Q4H PRN PRN Administration PAIN AND/OR FEVER Albuterol Sulfate 2.5 mg 03/11/20 20:16 Proventil 2.5 Mg/3 Ml Neb IH 04/10/20 20:15 Q4H PRN PRN SHORTNESS OF BREATH/WHEEZING Aspirin 81 mg 03/12/20 22:00 03/12/20 21:42 Ecotrin 81 Mg PO 04/11/20 21:59 81 mg QHS MATTI Administration Carvedilol 3.125 mg 03/11/20 22:00 03/13/20 08:57 Coreg 3.125 Mg PO 04/10/20 21:59 3.125 mg BID MATTI Administration Duloxetine HCl 90 mg 03/11/20 22:00 03/12/20 21:40 Cymbalta 30 Mg Capsule PO 04/10/20 21:59 90 mg HS MATTI Administration Hydrochlorothiazide 12.5 mg 03/11/20 22:00 03/12/20 21:43 Hydrodiuril 25 Mg PO 04/10/20 21:59 12.5 mg HS MATTI Administration Ceftriaxone Sodium/Dextrose 1 g in 50 mls @ 100 mls/hr 03/12/20 22:00 04/21 21:45 Rocephin 1 Gm-D5w 50 Ml Bag IV 04/11/20 09:59 100 mls/hr QPM MATTI Administration Azithromycin 500 mg in 250 mls @ 250 mls/hr 03/12/20 22:00 03/12/20 22:26 Zithromax 500 Mg/ 250 Ml Nacl Premix IV 04/11/20 09:59 250 mls/hr QPM MATTI Administration Lisinopril 2.5 mg 03/11/20 22:00 03/12/20 21:42 Zestril 5 Mg PO 04/10/20 21:59 2.5 mg HS MATTI Administration Miscellaneous Information 1 each 03/12/20 06:30 Medication Intervention PO 04/11/20 06:29 .RN TO CHECK ON MATTI Montelukast Sodium 10 mg 03/11/20 22:00 03/12/20 21:41 Singulair 10 Mg PO 04/10/20 21:59 10 mg HS MATTI Administration Ondansetron HCl 4 mg 03/11/20 19:39 Zofran 4 Mg/2 Ml Vial IV 04/10/20 19:38 Q6H PRN PRN NAUSEA/VOMITING Yupelri Nebule 1 each 03/12/20 10:00 03/13/20 07:31 IH 04/11/20 09:59 1 each DAILY MATTI Administration Brovana Nebule 1 each 03/11/20 19:00 03/13/20 07:31 IH 04/10/20 18:59 1 each BIDRT MATTI Administration Budesonide 0.5mg 1 each 03/11/20 19:00 03/13/20 07:30 Nebule IH 04/10/20 18:59 1 each BIDRT MATTI Administration Discontinued Medications Generic Name Dose Route Start Last Admin Trade Name Maxq PRN Reason Stop Dose Admin Albuterol Sulfate 2.5 mg 03/11/20 14:55 03/11/20 16:00 Proventil 2.5 Mg/3 Ml Neb IH 03/11/20 14:56 2.5 mg STAT ONE Administration Albuterol Sulfate Confirm 03/11/20 15:14 Proventil Solution 2.5 Mg/0.5 Ml Administered 03/11/20 15:15 Dose 2.5 mg IH .STK-MED ONE Aspirin 81 mg 03/11/20 22:00 03/11/20 22:36 Baby Aspirin 81 Mg Chew PO 04/10/20 21:59 81 mg QHS MATTI Administration Sodium Chloride 1,000 mls @ 100 mls/hr 03/11/20 15:00 03/11/20 14:59 Sodium Chloride 0.9% 1000 Ml IV 04/10/20 14:59 100 mls/hr .Q10H MATTI Administration Sodium Chloride Confirm 03/11/20 14:58 Sodium Chloride 0.9% 1000 Ml Administered 03/11/20 14:59 Dose 1,000 mls @ ud .ROUTE .STK-MED ONE Azithromycin 500 mg in 250 mls @ 250 mls/hr 03/12/20 10:00 03/11/20 21:35 Zithromax 500 Mg/ 250 Ml Nacl Premix IV 04/11/20 09:59 250 mls/hr Q24H10 MATTI Administration Ceftriaxone Sodium/Dextrose 1 g in 50 mls @ 100 mls/hr 03/12/20 10:00 03/11/20 20:58 Rocephin 1 Gm-D5w 50 Ml Bag IV 04/11/20 09:59 100 mls/hr Q24H10 MATTI Administration Azithromycin Confirm 03/11/20 20:06 Zithromax 500 Mg/ 250 Ml Nacl Premix Administered 03/11/20 20:07 Dose 500 mg in 250 mls @ ud IV .STK-MED ONE Ceftriaxone Sodium/Dextrose Confirm 03/11/20 20:06 Rocephin 1 Gm-D5w 50 Ml Bag Administered 03/11/20 20:07 Dose 1 g in 50 mls @ ud IV .STK-MED ONE Intake & Output (Last 24 hours) 03/10/20 03/11/20 03/12/20 03/13/20 11:59 11:59 11:59 11:59 Intake Total 1182 960 Output Total 700 1700 Balance 482 -740 Weight 74.7 kg Orders (Last 24 hours) Category Date Time Status Aspirin EC 81 mg [Ecotrin 81 mg] Med 03/12/20 22:00 Active 81 mg PO QHS Azithromycin 500 mg/250 ml [Zithromax 500 MG/ 250 ML Med 03/12/20 22:00 Active NaCl Premix] 500 mg in 250 ml IV QPM Ceftriaxone 1 GM/50 ML PREMIX* [ROCEPHIN 1 Gm-D5w 50 ml Med 03/12/20 22:00 Active Bag] 1 g in 50 ml IV QPM Patient Care Notes (Last 24 hours) 03/13/20 09:47 Case Management Note by Tejal Cooley PATIENT CONTINUES TO DENY ANY NEEDS REGARDING DC AT THIS TIME. PLANS TO RETURN HOME TO PRIOR LEVEL OF FUNCTIONING Initialized on 03/13/20 09:47 - END OF NOTE 03/12/20 13:01 DESIGN INSERTER Note by Connie Goldman pt walked in hallway with this special investigation unit investigator walking with her. pt tolerated well and once back in her room o2 checked and sats for 97% on room air. Initialized on 03/12/20 13:01 - END OF NOTE - Vitals & Intake/Output Vital Signs: Vital Signs Temperature 98.3 F 03/13/20 11:29 Pulse Rate 72 03/13/20 11:29 Respiratory Rate 18 03/13/20 11:29 Blood Pressure 126/60 03/13/20 11:29 O2 Sat by Pulse Oximetry 96 03/13/20 11:29 Intake & Output: Intake & Output 03/10/20 03/11/20 03/12/20 03/13/20 11:59 11:59 11:59 11:59 Intake Total 1182 960 Output Total 700 1700 Balance 482 -740 Weight 74.7 kg - Lab Result Diagrams: 03/12/20 03:04 03/12/20 03:04 - Radiology Exams Ordered Rad Exams-Entire Visit: Radiology Procedures Category Date Time Status CHEST 1 VIEW (PORTABLE) Stat Exams 03/11/20 14:55 Completed - Procedures and Test Procedures and Tests throughout Hospitalization: Therapy Orders & Screens 03/11/20 17:10 Respiratory Therapy Assessment DAILY Comment: Diagnosis: SOB 03/11/20 19:00 Respiratory Nebulizer BID Comment: BROVANA BID Diagnosis: pneumonia Respiratory Nebulizer BID Comment: PULMICORT Diagnosis: pneumonia 03/11/20 20:13 Peak Expiratory Flow Rate ONCE Comment: Reason For Exam: Diagnosis: pneumonia Respiratory Therapy Assessment DAILY Comment: Diagnosis: pneumonia 03/11/20 20:52 RT Screen per Nursing Assess ONCE Comment: Protocol Order Physician Instructions: Greater than 3 points order RT Admission Screen Reason For Exam: Triggered on Admission Diagnosis: rt lobe pneumonia Diagnosis: rt lobe pneumonia Pneumonia: Yes Home O2: No Asthma: Yes CHF: No Home CPAP/BIPAP: No Home Nebs/MDI: Yes Total Points: 12 03/12/20 07:00 Respiratory Nebulizer DAILY Comment: Diagnosis: pneumonia Final Diagnosis/Problem List - Final Discharge Diagnosis/Problem (1) Lower lobe pneumonia Current Visit: Yes Status: Resolved Assessment & Plan: Laboratory Results 03/12/20 03/12/20 03/12/20 Range/Units 03:04 03:04 03:04 WBC 7.1 (4.0-10.5) K/mm3 RBC 4.10 (4.1-5.4) M/mm3 Hgb 11.0 L (12.0-16.0) gm/dl Hct 34.2 L (35-47) % MCV 83.4 (78-100) fl MCH 26.8 (26-32) pg MCHC 32.2 (32-36) g/dl RDW 13.9 (11.5-14.0) % Plt Count 230 (150-450) K/mm3 MPV 10.1 (7.5-11.0) fl Gran % 42.0 (36.0-66.0) % Eos # (Auto) 0.44 (0-0.5) Absolute Lymphs (auto) 2.84 (1.0-4.6) Absolute Monos (auto) 0.81 (0.0-1.3) Lymphocytes % 40.0 (24.0-44.0) % Monocytes % 11.4 (0.0-12.0) % Eosinophils % 6.2 H (0.00-5.0) % Basophils % 0.4 (0.0-0.4) % Absolute Granulocytes 2.98 (1.4-6.9) Basophils # 0.03 (0-0.4) PT (9.95-12.35) SECONDS INR (0.8-3.0) D-Dimer (215-500) ng/mL Sodium 138 (137-145) mmol/L Potassium 4.0 (3.5-5.1) mmol/L Chloride 110 H (98-107) mmol/L Carbon Dioxide 24 (22-30) mmol/L Anion Gap 7.9 (5-15) MEQ/L BUN 13 (7-17) mg/dL Creatinine 0.86 (0.52-1.04) mg/dL Estimated GFR > 60.0 ML/MIN Glucose 103 (74-106) mg/dL Lactic Acid (0.4-2.0) Calcium 8.5 (8.4-10.2) mg/dL Magnesium (1.6-2.3) mg/dL Total Bilirubin 0.40 (0.2-1.3) mg/dL AST 28 (14-36) U/L ALT 22 (0-35) U/L Alkaline Phosphatase 59 (38-126) U/L Troponin I < 0.012 (0.000-0.034) ng/mL NT-Pro-B Natriuret Pep (0-900) pg/mL Serum Total Protein 5.9 L (6.3-8.2) g/dL Albumin 3.1 L (3.5-5.0) g/dL Urine Color (YELLOW) Urine Appearance (CLEAR) Urine pH (5-6) Ur Specific [place] (1.005-1.025) Urine Protein (Negative) Urine Ketones (NEGATIVE) Urine Blood (0-5) Paul/ul Urine Nitrite (NEGATIVE) Urine Bilirubin (NEGATIVE) Urine Urobilinogen (0-1) mg/dL Ur Leukocyte Esterase (NEGATIVE) Urine WBC (Auto) (0-5) /HPF Urine RBC (Auto) (0-2) /HPF U Epithel Cells (Auto) (FEW) /HPF Urine Bacteria (Auto) (NEGATIVE) /HPF Urine Mucus (Auto) (NEGATIVE) /HPF Urine Culture Reflexed (NO) Urine Glucose (NEGATIVE) mg/dL Influenza Type A Ag (NEGATIVE) Influenza Type B Ag (NEGATIVE) RSV (PCR) (Negative) SARS-CoV-2 (PCR) (NEGATIVE) 03/12/20 03/12/20 03/11/20 Range/Units 03:00 00:20 21:28 WBC (4.0-10.5) K/mm3 RBC (4.1-5.4) M/mm3 Hgb (12.0-16.0) gm/dl Hct (35-47) % MCV (78-100) fl MCH (26-32) pg MCHC (32-36) g/dl RDW (11.5-14.0) % Plt Count (150-450) K/mm3 MPV (7.5-11.0) fl Gran % (36.0-66.0) % Eos # (Auto) (0-0.5) Absolute Lymphs (auto) (1.0-4.6) Absolute Monos (auto) (0.0-1.3) Lymphocytes % (24.0-44.0) % Monocytes % (0.0-12.0) % Eosinophils % (0.00-5.0) % Basophils % (0.0-0.4) % Absolute Granulocytes (1.4-6.9) Basophils # (0-0.4) PT (9.95-12.35) SECONDS INR (0.8-3.0) D-Dimer (215-500) ng/mL Sodium (137-145) mmol/L Potassium (3.5-5.1) mmol/L Chloride (98-107) mmol/L Carbon Dioxide (22-30) mmol/L Anion Gap (5-15) MEQ/L BUN (7-17) mg/dL Creatinine (0.52-1.04) mg/dL Estimated GFR ML/MIN Glucose (74-106) mg/dL Lactic Acid 1.1 (0.4-2.0) Calcium (8.4-10.2) mg/dL Magnesium (1.6-2.3) mg/dL Total Bilirubin (0.2-1.3) mg/dL AST (14-36) U/L ALT (0-35) U/L Alkaline Phosphatase (38-126) U/L Troponin I < 0.012 < 0.012 (0.000-0.034) ng/mL NT-Pro-B Natriuret Pep (0-900) pg/mL Serum Total Protein (6.3-8.2) g/dL Albumin (3.5-5.0) g/dL Urine Color (YELLOW) Urine Appearance (CLEAR) Urine pH (5-6) Ur Specific [place] (1.005-1.025) Urine Protein (Negative) Urine Ketones (NEGATIVE) Urine Blood (0-5) Paul/ul Urine Nitrite (NEGATIVE) Urine Bilirubin (NEGATIVE) Urine Urobilinogen (0-1) mg/dL Ur Leukocyte Esterase (NEGATIVE) Urine WBC (Auto) (0-5) /HPF Urine RBC (Auto) (0-2) /HPF U Epithel Cells (Auto) (FEW) /HPF Urine Bacteria (Auto) (NEGATIVE) /HPF Urine Mucus (Auto) (NEGATIVE) /HPF Urine Culture Reflexed (NO) Urine Glucose (NEGATIVE) mg/dL Influenza Type A Ag (NEGATIVE) Influenza Type B Ag (NEGATIVE) RSV (PCR) (Negative) SARS-CoV-2 (PCR) (NEGATIVE) 03/11/20 03/11/20 03/11/20 Range/Units 18:10 17:32 16:02 WBC (4.0-10.5) K/mm3 RBC (4.1-5.4) M/mm3 Hgb (12.0-16.0) gm/dl Hct (35-47) % MCV (78-100) fl MCH (26-32) pg MCHC (32-36) g/dl RDW (11.5-14.0) % Plt Count (150-450) K/mm3 MPV (7.5-11.0) fl Gran % (36.0-66.0) % Eos # (Auto) (0-0.5) Absolute Lymphs (auto) (1.0-4.6) Absolute Monos (auto) (0.0-1.3) Lymphocytes % (24.0-44.0) % Monocytes % (0.0-12.0) % Eosinophils % (0.00-5.0) % Basophils % (0.0-0.4) % Absolute Granulocytes (1.4-6.9) Basophils # (0-0.4) PT (9.95-12.35) SECONDS INR (0.8-3.0) D-Dimer (215-500) ng/mL Sodium (137-145) mmol/L Potassium (3.5-5.1) mmol/L Chloride (98-107) mmol/L Carbon Dioxide (22-30) mmol/L Anion Gap (5-15) MEQ/L BUN (7-17) mg/dL Creatinine (0.52-1.04) mg/dL Estimated GFR ML/MIN Glucose (74-106) mg/dL Lactic Acid 0.7 (0.4-2.0) Calcium (8.4-10.2) mg/dL Magnesium (1.6-2.3) mg/dL Total Bilirubin (0.2-1.3) mg/dL AST (14-36) U/L ALT (0-35) U/L Alkaline Phosphatase (38-126) U/L Troponin I < 0.012 (0.000-0.034) ng/mL NT-Pro-B Natriuret Pep (0-900) pg/mL Serum Total Protein (6.3-8.2) g/dL Albumin (3.5-5.0) g/dL Urine Color YELLOW (YELLOW) Urine Appearance SLIGHTLY CLOUDY (CLEAR) Urine pH 7.0 (5-6) Ur Specific [place] 1.017 (1.005-1.025) Urine Protein NEGATIVE (Negative) Urine Ketones SMALL (NEGATIVE) Urine Blood NEGATIVE (0-5) Paul/ul Urine Nitrite NEGATIVE (NEGATIVE) Urine Bilirubin NEGATIVE (NEGATIVE) Urine Urobilinogen NEGATIVE (0-1) mg/dL Ur Leukocyte Esterase MODERATE (NEGATIVE) Urine WBC (Auto) 6-10 (0-5) /HPF Urine RBC (Auto) 0-2 (0-2) /HPF U Epithel Cells (Auto) RARE (FEW) /HPF Urine Bacteria (Auto) RARE (NEGATIVE) /HPF Urine Mucus (Auto) SLIGHT (NEGATIVE) /HPF Urine Culture Reflexed NO (NO) Urine Glucose NEGATIVE (NEGATIVE) mg/dL Influenza Type A Ag (NEGATIVE) Influenza Type B Ag (NEGATIVE) RSV (PCR) (Negative) SARS-CoV-2 (PCR) (NEGATIVE) 03/11/20 03/11/20 03/11/20 Range/Units 15:20 15:20 15:00 WBC (4.0-10.5) K/mm3 RBC (4.1-5.4) M/mm3 Hgb (12.0-16.0) gm/dl Hct (35-47) % MCV (78-100) fl MCH (26-32) pg MCHC (32-36) g/dl RDW (11.5-14.0) % Plt Count (150-450) K/mm3 MPV (7.5-11.0) fl Gran % (36.0-66.0) % Eos # (Auto) (0-0.5) Absolute Lymphs (auto) (1.0-4.6) Absolute Monos (auto) (0.0-1.3) Lymphocytes % (24.0-44.0) % Monocytes % (0.0-12.0) % Eosinophils % (0.00-5.0) % Basophils % (0.0-0.4) % Absolute Granulocytes (1.4-6.9) Basophils # (0-0.4) PT (9.95-12.35) SECONDS INR (0.8-3.0) D-Dimer (215-500) ng/mL Sodium (137-145) mmol/L Potassium (3.5-5.1) mmol/L Chloride (98-107) mmol/L Carbon Dioxide (22-30) mmol/L Anion Gap (5-15) MEQ/L BUN (7-17) mg/dL Creatinine (0.52-1.04) mg/dL Estimated GFR ML/MIN Glucose (74-106) mg/dL Lactic Acid (0.4-2.0) Calcium (8.4-10.2) mg/dL Magnesium (1.6-2.3) mg/dL Total Bilirubin (0.2-1.3) mg/dL AST (14-36) U/L ALT (0-35) U/L Alkaline Phosphatase (38-126) U/L Troponin I 0.037 H* (0.000-0.034) ng/mL NT-Pro-B Natriuret Pep (0-900) pg/mL Serum Total Protein (6.3-8.2) g/dL Albumin (3.5-5.0) g/dL Urine Color (YELLOW) Urine Appearance (CLEAR) Urine pH (5-6) Ur Specific [place] (1.005-1.025) Urine Protein (Negative) Urine Ketones (NEGATIVE) Urine Blood (0-5) Paul/ul Urine Nitrite (NEGATIVE) Urine Bilirubin (NEGATIVE) Urine Urobilinogen (0-1) mg/dL Ur Leukocyte Esterase (NEGATIVE) Urine WBC (Auto) (0-5) /HPF Urine RBC (Auto) (0-2) /HPF U Epithel Cells (Auto) (FEW) /HPF Urine Bacteria (Auto) (NEGATIVE) /HPF Urine Mucus (Auto) (NEGATIVE) /HPF Urine Culture Reflexed (NO) Urine Glucose (NEGATIVE) mg/dL Influenza Type A Ag NEGATIVE (NEGATIVE) Influenza Type B Ag NEGATIVE (NEGATIVE) RSV (PCR) NEGATIVE (Negative) SARS-CoV-2 (PCR) NEGATIVE (NEGATIVE) 03/11/20 03/11/20 03/11/20 Range/Units 15:00 15:00 15:00 WBC 13.0 H (4.0-10.5) K/mm3 RBC 4.67 (4.1-5.4) M/mm3 Hgb 12.5 (12.0-16.0) gm/dl Hct 38.3 (35-47) % MCV 82.0 (78-100) fl MCH 26.8 (26-32) pg MCHC 32.6 (32-36) g/dl RDW 14.0 (11.5-14.0) % Plt Count 276 (150-450) K/mm3 MPV 10.3 (7.5-11.0) fl Gran % 65.2 (36.0-66.0) % Eos # (Auto) 0.51 H (0-0.5) Absolute Lymphs (auto) 3.06 (1.0-4.6) Absolute Monos (auto) 0.94 (0.0-1.3) Lymphocytes % 23.5 L (24.0-44.0) % Monocytes % 7.2 (0.0-12.0) % Eosinophils % 3.9 (0.00-5.0) % Basophils % 0.2 (0.0-0.4) % Absolute Granulocytes 8.48 H (1.4-6.9) Basophils # 0.02 (0-0.4) PT 10.9 (9.95-12.35) SECONDS INR 0.96 (0.8-3.0) D-Dimer 962 H* (215-500) ng/mL Sodium 136 L (137-145) mmol/L Potassium 3.8 (3.5-5.1) mmol/L Chloride 104 (98-107) mmol/L Carbon Dioxide 23 (22-30) mmol/L Anion Gap 12.4 (5-15) MEQ/L BUN 15 (7-17) mg/dL Creatinine 0.91 (0.52-1.04) mg/dL Estimated GFR > 60.0 ML/MIN Glucose 100 (74-106) mg/dL Lactic Acid (0.4-2.0) Calcium 9.6 (8.4-10.2) mg/dL Magnesium 1.9 (1.6-2.3) mg/dL Total Bilirubin 0.80 (0.2-1.3) mg/dL AST 37 H (14-36) U/L ALT 30 (0-35) U/L Alkaline Phosphatase 71 (38-126) U/L Troponin I (0.000-0.034) ng/mL NT-Pro-B Natriuret Pep 158 (0-900) pg/mL Serum Total Protein 7.8 (6.3-8.2) g/dL Albumin 4.4 (3.5-5.0) g/dL Urine Color (YELLOW) Urine Appearance (CLEAR) Urine pH (5-6) Ur Specific [place] (1.005-1.025) Urine Protein (Negative) Urine Ketones (NEGATIVE) Urine Blood (0-5) Paul/ul Urine Nitrite (NEGATIVE) Urine Bilirubin (NEGATIVE) Urine Urobilinogen (0-1) mg/dL Ur Leukocyte Esterase (NEGATIVE) Urine WBC (Auto) (0-5) /HPF Urine RBC (Auto) (0-2) /HPF U Epithel Cells (Auto) (FEW) /HPF Urine Bacteria (Auto) (NEGATIVE) /HPF Urine Mucus (Auto) (NEGATIVE) /HPF Urine Culture Reflexed (NO) Urine Glucose (NEGATIVE) mg/dL Influenza Type A Ag (NEGATIVE) Influenza Type B Ag (NEGATIVE) RSV (PCR) (Negative) SARS-CoV-2 (PCR) (NEGATIVE) 03/11/20 Range/Units 14:55 WBC (4.0-10.5) K/mm3 RBC (4.1-5.4) M/mm3 Hgb (12.0-16.0) gm/dl Hct (35-47) % MCV (78-100) fl MCH (26-32) pg MCHC (32-36) g/dl RDW (11.5-14.0) % Plt Count (150-450) K/mm3 MPV (7.5-11.0) fl Gran % (36.0-66.0) % Eos # (Auto) (0-0.5) Absolute Lymphs (auto) (1.0-4.6) Absolute Monos (auto) (0.0-1.3) Lymphocytes % (24.0-44.0) % Monocytes % (0.0-12.0) % Eosinophils % (0.00-5.0) % Basophils % (0.0-0.4) % Absolute Granulocytes (1.4-6.9) Basophils # (0-0.4) PT (9.95-12.35) SECONDS INR (0.8-3.0) D-Dimer (215-500) ng/mL Sodium (137-145) mmol/L Potassium (3.5-5.1) mmol/L Chloride (98-107) mmol/L Carbon Dioxide (22-30) mmol/L Anion Gap (5-15) MEQ/L BUN (7-17) mg/dL Creatinine (0.52-1.04) mg/dL Estimated GFR ML/MIN Glucose (74-106) mg/dL Lactic Acid 1.9 (0.4-2.0) Calcium (8.4-10.2) mg/dL Magnesium (1.6-2.3) mg/dL Total Bilirubin (0.2-1.3) mg/dL AST (14-36) U/L ALT (0-35) U/L Alkaline Phosphatase (38-126) U/L Troponin I (0.000-0.034) ng/mL NT-Pro-B Natriuret Pep (0-900) pg/mL Serum Total Protein (6.3-8.2) g/dL Albumin (3.5-5.0) g/dL Urine Color (YELLOW) Urine Appearance (CLEAR) Urine pH (5-6) Ur Specific [place] (1.005-1.025) Urine Protein (Negative) Urine Ketones (NEGATIVE) Urine Blood (0-5) Paul/ul Urine Nitrite (NEGATIVE) Urine Bilirubin (NEGATIVE) Urine Urobilinogen (0-1) mg/dL Ur Leukocyte Esterase (NEGATIVE) Urine WBC (Auto) (0-5) /HPF Urine RBC (Auto) (0-2) /HPF U Epithel Cells (Auto) (FEW) /HPF Urine Bacteria (Auto) (NEGATIVE) /HPF Urine Mucus (Auto) (NEGATIVE) /HPF Urine Culture Reflexed (NO) Urine Glucose (NEGATIVE) mg/dL Influenza Type A Ag (NEGATIVE) Influenza Type B Ag (NEGATIVE) RSV (PCR) (Negative) SARS-CoV-2 (PCR) (NEGATIVE) Code(s): J18.9 - PNEUMONIA, UNSPECIFIED ORGANISM (2) Acute exacerbation of chronic bronchitis Current Visit: Yes Status: Acute Code(s): J20.9 - ACUTE BRONCHITIS, UNSPECIFIED; J42 - UNSPECIFIED CHRONIC BRONCHITIS - Discharge Discharge Date: 03/13/20 Disposition: Home, Self-Care Condition: Stable Prescriptions: New Levofloxacin [Levaquin] 500 mg PO DAILY #7 tablet Continue Montelukast Sodium [Singulair] 10 mg PO DAILY Hydrochlorothiazide 12.5 mg PO DAILY Duloxetine HCl 90 mg PO DAILY Carvedilol 3.125 mg [Coreg 3.125 MG] 3.125 mg PO BID #60 tablet Acetaminophen 325 mg [Tylenol 325 mg] 650 mg PO Q4H PRN PRN tablet PRN Reason: Pain, Fever, Headache lisinopriL [Zestril] 2.5 mg PO DAILY #30 tablet Raloxifene HCl [Evista] 60 mg PO DAILY Aspirin 81 gm Chew [Baby Aspirin 81 mg Chew] 81 mg PO DAILY #30 tab.chew Arformoterol Tartrate [Brovana] 15 mcg NEB BID Budesonide 0.5 mg NEB BID Revefenacin [Yupelri] 175 mcg NEB DAILY Instructions: How to Use an Incentive Spirometer Follow up with: HECTOR SPAIN MD [Primary Care Provider] - 1 Week
[2020-03-13] MEDS ORDERED: NON-FORMULARY ITEM IM ONE (13:00)
== END 2020-03-13 14:28 | disposition home or self-care (01) ==
LOC: ED 14:45 → MED SURG 19:35
PROVIDERS: ADMIT General Practice; ATTEND General Practice
DX: J18.9 Pneumonia, unspecified organism (principal); J42 Unspecified chronic bronchitis; I10 Essential (primary) hypertension; R06.02 Shortness of breath; Z11.59 Encounter for screening for other viral diseases; Z79.899 Other long term (current) drug therapy
CPT/HCPCS: 36000; 36415; 71045; 80053; 81001; 83605; 83735; 83880; 84484; 85025; 85379; 85610; 87040; 87631; 93005; 93268; 94150; 94640; 94760; 99285; G0378; U0003; J0456; J0696; J7609; A9270-GY